=== PATIENT | female | born 1980 | race Caucasian/White ===

== ENCOUNTER → 2016-07-15 | Outpatient (CLI) | payer BC, OTHER ==
[~2016-07-15] MED LIST: FLVHFA110 PO; OXYC-57 PO; PANT40TA PO; PEDICHW50 PO
[2016-07-15 12:05] LABS: BASO % 0.2 %; BASO ABS # 0.02 K/uL (0-0.2); COMPLETE YES; EOS % 0.6 %; HEMATOCRIT 39.6 % (37-47); IG% 0.2 %; LYMPH % 21.7 %; MEAN CELL VOLUME 88.4 fL (80-100); MEAN CORPUSCULAR HEMOGLOBIN 30.4 pg (25-34); MEAN CORPUSCULAR HGB CONC 34.3 g/dl (32-36); MEAN PLATELET VOLUME 10.7 fL (7.4-10.4); MONO % 4.6 %; NEUT % 72.7 %; PLATELET COUNT 303 K/uL (130-400); RED BLOOD COUNT 4.48 M/uL (4.2-5.4); WHITE BLOOD COUNT 8.75 K/uL (4.8-10.8)
[2016-07-15 12:12] LABS: URINE APPEARANCE CLEAR (CLEAR); URINE BILIRUBIN NEG (NEG); URINE COLOR YELLOW; URINE EPITHELIAL CELL AUTO >30 /lpf (0-5); URINE NITRITE NEG (NEG); URINE SPECIFIC GRAVITY 1.023 (1.000-1.030); UROBILINOGEN NEG (NEG)
[2016-07-15 12:16] LABS: MANUAL MICROSCOPIC REQUIRED? NO; REVIEW REQ? NO
[2016-07-16 21:52] LABS: CHLAMYDIA TRACH RNA*** NOT DETECTED (NOT DETECTED); GC (NEIS GONORRHOEAE)RNA** NOT DETECTED (NOT DETECTED)
== END | disposition home or self-care (01) ==
LOC: C.LAB1850 10:27
PROVIDERS: ATTEND Obstetrics & Gynecology
DX: O09.521 Supervision of elderly multigravida, first trimester (principal); R39.9 Unspecified symptoms and signs involving the genitourinary system; Z3A.00 Weeks of gestation of pregnancy not specified

== ENCOUNTER → 2016-09-09 | Outpatient (CLI) | payer BC, OTHER ==
[~2016-09-09] MED LIST changes: +FLVHFA110 INH; +ZNTT/150 PO
[2016-09-09 12:50] LABS: GTGD 50 Grams
== END | disposition home or self-care (01) ==
LOC: C.LAB1850 10:15
PROVIDERS: ATTEND Obstetrics & Gynecology
DX: O09.522 Supervision of elderly multigravida, second trimester (principal); Z3A.00 Weeks of gestation of pregnancy not specified

== ENCOUNTER 2016-10-05 08:46 | Emergency (ER) | payer BC, OTHER ==
[~2016-10-05] VITALS: Ht 167.6 cm; Wt 116.9 kg
[~2016-10-05 08:46] MED LIST changes: -FLVHFA110 INH; -OXYC-57 PO; -PEDICHW50 PO; -ZNTT/150 PO
[2016-10-05 08:50] VITALS: TEMP 36.7; Ht 167.6 cm; Wt 116.9 kg
[2016-10-05] MEDS ORDERED: FENTANYL CITRATE INJ 50 MCG/1 ML 2 ML VIAL IV STA (09:35)
[2016-10-05] MEDS ORDERED: SODIUM CHLORIDE 0.9% 1000ML 1,000 ML IV STA ×2 (09:35→11:23)
[2016-10-05] MEDS ORDERED: ONDANSETRON INJ 2 MG/ML 2 ML VIAL IV STA (09:35)
[2016-10-05] MEDS ORDERED: FENTANYL CITRATE INJ 50 MCG/1 ML 2 ML VIAL IV PRN (09:45)
[2016-10-05] MEDS ORDERED: PEDICHW50 PO (09:48)
[2016-10-05 10:26] LABS: BASO % 0.1 %; BASO ABS # 0.01 K/uL (0-0.2); COMPLETE YES; EOS % 0.9 %; HEMATOCRIT 34.6 % (37-47); IG% 0.2 %; LYMPH ABS # 1.54 K/uL (1.2-3.4); MEAN CELL VOLUME 90.6 fL (80-100); MEAN CORPUSCULAR HEMOGLOBIN 30.1 pg (25-34); MEAN CORPUSCULAR HGB CONC 33.2 g/dl (32-36); MEAN PLATELET VOLUME 10.2 fL (7.4-10.4); NEUT % 77.8 %; PLATELET COUNT 266 K/uL (130-400); RED BLOOD COUNT 3.82 M/uL (4.2-5.4); WHITE BLOOD COUNT 9.62 K/uL (4.8-10.8)
[2016-10-05 10:46] LABS: CALCIUM 8.1 mg/dl (8.5-10.1); CREATININE 0.52 mg/dl (0.60-1.20); MAGNESIUM 2.1 mg/dl (1.8-2.4); POTASSIUM 3.8 mmol/L (3.5-5.1)
[2016-10-05 10:49] LABS: ALB/GLOB RATIO 0.6 (0.9-2)
[2016-10-05 10:51] LABS: INR 0.9 (0.9-1.1); PROTHROMBIN TIME (PATIENT) 9.4 SECONDS (9.0-12.0)
--- NOTE | 2016-10-05 11:29 | DIAGNOSTIC IMAGING REPORT ---
CT OF THE HEAD WITHOUT CONTRAST CLINICAL HISTORY: Severe headache. 21 weeks . COMPARISON STUDY: No previous studies for comparison. CT DOSE: 537.48 mGy.cm TECHNIQUE: The abdomen and pelvis were double shielded due to . Helical axial images of the head were obtained without IV contrast. Automated exposure control was utilized for the study. FINDINGS: No acute intracranial hemorrhage, midline shift or mass effect is present. Ventricular system is normal. Basilar cisterns are patent. There are no extra-axial collections. Kaplan-white differentiation is maintained. There are no findings to suggest acute dural sinus thrombosis or acute territorial infarct. A 9 mm hypodensity within the right basal ganglia suggests a prominent perivascular space. There are no calvarial abnormalities. Visualized portions of the sinuses and mastoid air cells are clear. IMPRESSION: No acute intracranial findings. Electronically signed by: Mikey Lobato M.D. 10/05/2016 11:27 AM Dictated Date/Time: 10/05/2016 11:24 AM
[2016-10-05] MEDS ORDERED: OXYC-57 PO (13:50)
--- NOTE | 2016-10-05 13:50 | EMERGENCY ROOM VISIT NOTE ---
History First contact with patient: 08:55 Chief Complaint: FLANK PAIN Stated Complaint: PALMA, DIZZY, RT SIDED PAIN, N,V-21 WKS. PREG History of Present Illness Patient is a 21 week 36-year-old white female with past medical history significant for eosinophilic esophagitis who presents emergency department for evaluation of 2 complaints. First, she reports that she has been experiencing constant, daily, throbbing frontal headaches for the last 3 weeks. She has used acetaminophen without relief. They get worse as the day progresses. She presently rates her headache and it 8/10. She has associated blurry vision and dizziness. She denies any cold or upper respiratory symptoms including sinus or nasal congestion or allergy symptoms. She has not taken any additional medications for her headache. She does not have a history of headaches or a migraine disorder. She states that her blood pressure has been "fine at her OB visits." OB sent her to ophthalmology, she states that she had a dilated eye exam and was told that she was fine. She did not require any changes in her prescription. Secondly, patient also reports a dull right sided abdominal pain for the last week. She states the dullness is constant in nature, it can be sharp with movement or turning, then settles back down. She notes that it is in the right upper quadrant underneath her ribs, and radiates slightly towards her groin. It feels better when she holds pressure on the area. It does not wrap around to her flank or her back. She has had some intermittent nausea for the last 2 weeks, and vomited 2 today. She states that she did have typical first trimester nausea and vomiting, but that resolved, then worsened again in the last 2 weeks. She denies any lower pelvic pain. She states baby has been moving normally. She denies any vaginal bleeding or leakage of fluid, no abnormal vaginal discharge. She did have her screening 20 week ultrasound 4 days ago and told that everything was fine. She does need to go back in 4 weeks for additional views of the heart that could not be completed this week. She has some typical leg swelling and some cramping in the right leg. She denies any dysuria, frequency, urgency or hematuria. Bowel movements have been normal, denies melena, hematochezia, hematemesis, constipation or diarrhea. She has not had any fevers. She denies any rashes or insect bites. Review of Systems Review of systems as per HPI. All other systems reviewed were negative. 10 systems reviewed. Past Medical/Surgical History Medical Problems: (1) Chest pain (2) Eosinophilic esophagitis (3) Pill esophagitis (4) Shortness of breath Surgical Problems: (1) Hx of arthroscopic knee surgery (2) Hx of cholecystectomy (3) Hx of esophagogastroduodenoscopy (4) Hx of tonsillectomy Electronic medical records are reviewed and summarized as above/below. See Problem List. Family History Diabetes mellitus Social History Smoking Status: Never Smoker Alcohol Use: none Drug Use: none Housing Status: lives with family Occupation Status: employed Current/Historical Medications Scheduled Pediatric Multiple Vitamin W/ (Flintstones Chewable), 1 TAB PO QAM Scheduled PRN Oxycodone/Acetaminophen 5MG/325MG (Percocet 5MG/325MG), 1-2 TABS PO Q4 PRN for Pain Allergies Coded Allergies: No Known Allergies (Verified , 10/05/16) Physical Exam Vital Signs Date Time Temp Pulse Resp B/P (MAP) Pulse Ox O2 Delivery O2 Flow Rate FiO2 10/05/16 14:23 91 18 136/70 98 10/05/16 13:42 82 18 140/65 98 Room Air 10/05/16 12:34 75 16 134/85 98 Room Air 10/05/16 11:54 76 17 141/75 98 Room Air 10/05/16 11:02 76 15 131/73 96 Room Air 10/05/16 10:22 91 10/05/16 10:10 80 17 137/78 93 Room Air 10/05/16 08:50 36.7 107 18 143/84 97 Room Air Physical Exam CONSTITUTIONAL: Patient is a tearful, obese 36-year-old white female who was awake and alert and in mild distress due to her headache. Vital signs are stable. heart tones are appreciated with the hand-held Doppler at 155 beats per minute. EYES: Pupils equal, round, reactive to light and accommodation. Slight photophobia noted. No proptosis. EOMs intact without nystagmus. Sclera are anicteric. ENT: Tympanic membranes intact, with normal landmarks. External canals are clear. Oral and nasopharynx are clear. Mucous membranes are moist, no lesions , tongue and gums appear normal. NECK: No bruits auscultated. Supple without lymphadenopathy. No thyromegaly. No meningeal signs. Full active range of motion without discomfort. CARDIOVASCULAR: Regular rate and rhythm, with normal S1 and S2, no murmur or gallop or rub is heard. No carotid bruits auscultated. No JVD. Peripheral pulses easy to palpable. RESPIRATORY: Breath sounds equal and clear to auscultation without wheezes, rales, or rhonchi heard. Full and equal chest expansion without accessory muscle use or retractions. GI: Bowel sounds are present. Abdomen is soft, slightly tender in the right mid abdomen, without guarding, rebound or rigidity. There is no localized pain in the right lower quadrant. No organomegaly. No pulsatile masses. Fundus of the uterus is palpable at the umbilicus. MUSCULOSKELETAL: Full range of motion of extremities x 4 with good strength. No cyanosis, edema, joint tenderness or swelling. No deformity. INTEGUMENTARY: No lesions or rash, normal skin turgor. NEUROLOGICAL: Alert, oriented, and cooperative. Cranial nerves, sensation and strength grossly intact. Normal gait. Patient is able to tandem walk without difficulty. Finger to nose, finger to finger and rapid alternating movements are intact. Negative Romberg and pronator drip. DTRs are equal and symmetrical bilaterally. Medical Decision & Procedures ER Provider Diagnostic Interpretation: CT OF THE HEAD WITHOUT CONTRAST CLINICAL HISTORY: Severe headache. 21 weeks . COMPARISON STUDY: No previous studies for comparison. CT DOSE: 537.48 mGy.cm TECHNIQUE: The abdomen and pelvis were double shielded due to . Helical axial images of the head were obtained without IV contrast. Automated exposure control was utilized for the study. FINDINGS: No acute intracranial hemorrhage, midline shift or mass effect is present. Ventricular system is normal. Basilar cisterns are patent. There are no extra-axial collections. Kaplan-white differentiation is maintained. There are no findings to suggest acute dural sinus thrombosis or acute territorial infarct. A 9 mm hypodensity within the right basal ganglia suggests a prominent perivascular space. There are no calvarial abnormalities. Visualized portions of the sinuses and mastoid air cells are clear. IMPRESSION: No acute intracranial findings. Laboratory Results 10/05/16 10:10 Red Blood Count 3.82, Mean Corpuscular Volume 90.6, Mean Corpuscular Hemoglobin 30.1, Mean Corpuscular Hemoglobin Concent 33.2, Mean Platelet Volume 10.2, Neutrophils (%) (Auto) 77.8, Lymphocytes (%) (Auto) 16.0, Monocytes (%) (Auto) 5.0, Eosinophils (%) (Auto) 0.9, Basophils (%) (Auto) 0.1, Neutrophils # (Auto) 7.48, Lymphocytes # (Auto) 1.54, Monocytes # (Auto) 0.48, Eosinophils # (Auto) 0.09, Basophils # (Auto) 0.01 10/05/16 10:10 Test 10/05/16 10:10 White Blood Count 9.62 K/uL (4.8-10.8) Red Blood Count 3.82 M/uL (4.2-5.4) Hemoglobin 11.5 g/dL (12.0-16.0) Hematocrit 34.6 % (37-47) Mean Corpuscular Volume 90.6 fL (80-100) Mean Corpuscular Hemoglobin 30.1 pg (25-34) Mean Corpuscular Hemoglobin Concent 33.2 g/dl (32-36) Platelet Count 266 K/uL (130-400) Mean Platelet Volume 10.2 fL (7.4-10.4) Neutrophils (%) (Auto) 77.8 % Lymphocytes (%) (Auto) 16.0 % Monocytes (%) (Auto) 5.0 % Eosinophils (%) (Auto) 0.9 % Basophils (%) (Auto) 0.1 % Neutrophils # (Auto) 7.48 K/uL (1.4-6.5) Lymphocytes # (Auto) 1.54 K/uL (1.2-3.4) Monocytes # (Auto) 0.48 K/uL (0.11-0.59) Eosinophils # (Auto) 0.09 K/uL (0-0.5) Basophils # (Auto) 0.01 K/uL (0-0.2) RDW Standard Deviation 46.0 fL (36.4-46.3) RDW Coefficient of Variation 13.9 % (11.5-14.5) Immature Granulocyte % (Auto) 0.2 % Immature Granulocyte # (Auto) 0.02 K/uL (0.00-0.02) Prothrombin Time 9.4 SECONDS (9.0-12.0) Prothromb Time International Ratio 0.9 (0.9-1.1) Activated Partial Thromboplast Time 26.6 SECONDS (21.0-31.0) Partial Thromboplastin Ratio 1.0 Anion Gap 9.0 mmol/L (3-11) Est Creatinine Clear Calc Drug Dose 198.1 ml/min Estimated GFR () 144.5 Estimated GFR (Non- 124.7 BUN/Creatinine Ratio 9.0 (10-20) Calcium Level 8.1 mg/dl (8.5-10.1) Magnesium Level 2.1 mg/dl (1.8-2.4) Total Bilirubin 0.3 mg/dl (0.2-1) Aspartate Amino Transf (AST/SGOT) 12 U/L (15-37) Alanine Aminotransferase (ALT/SGPT) 17 U/L (12-78) Alkaline Phosphatase 91 U/L (45-117) Total Protein 6.4 gm/dl (6.4-8.2) Albumin 2.5 gm/dl (3.4-5.0) Globulin 3.9 gm/dl (2.5-4.0) Albumin/Globulin Ratio 0.6 (0.9-2) Lipase 95 U/L (73-393) Medications Administered Medications (Trade) Dose Ordered Sig/Melba Route Start Time Stop Time Status Last Admin Dose Admin Sodium Chloride 1,000 ml @ 999 mls/hr Q1H1M STAT IV 10/05/16 09:35 10/05/16 10:35 DC 10/05/16 10:20 999 MLS/HR Ondansetron HCl (Zofran Inj) 4 mg NOW STAT IV 10/05/16 09:35 10/05/16 09:38 DC 10/05/16 10:20 4 MG Fentanyl Citrate (Fentanyl Inj) 100 mcg NOW STAT IV 10/05/16 09:35 10/05/16 09:38 DC 10/05/16 10:20 100 MCG Sodium Chloride 1,000 ml @ 999 mls/hr Q1H1M STAT IV 10/05/16 11:23 10/05/16 12:23 DC 10/05/16 11:23 999 MLS/HR ED Course The patient was seen and evaluated as above. Her old records are reviewed. She presents the emergency department for 2 complaints, but her primary concern has been her headache. IV lock was initiated. She was hydrated with a total of 2 L of normal saline solution. Medication options were discussed with her given her second trimester . Risks, benefits and alternatives were outlined with her. She was agreeable to proceed. She was given 4 mg of Zofran and 100 g of fentanyl IV. She is placed on a insulation nozzleman. CBC with differential, coags, CMP, lipase, magnesium and urine dip were collected. Given the presentation of her headache, I did discuss performing a head CT with the patient, and she was in agreement. Laboratory studies noted a normal white count at 9600. H&H slightly low, likely dilutional related to her at 11.5 and 34.6. Platelets and coags are normal. Electrolytes revealed sodium of 140, potassium 3.8, chloride 108, carbon dioxide 23, BUN 5 and creatinine 0.52. Liver functions are not elevated. Lipase is not indicative of acute pancreatitis. Urine dip noted trace protein, 2+ white blood cells, no other indicators for infection. Head CT was obtained, and did not demonstrate any acute intracranial abnormality. The patient was reassessed and made aware of the results of her laboratory and diagnostic imaging studies. She reported good relief of her discomfort, and was able to rest in a darkened room during the remainder of her stay while the IV fluids were completed. All laboratory and diagnostic imaging studies were reviewed with attending physician. Differential includes: Preeclampsia, acute intracranial bleed, meningitis, encephalitis, mass or mass effect, sinusitis, infection, migraine, tumor, headache, temporal arteritis, dehydration, electrolyte or metabolic imbalance, gastritis, peptic ulcer disease , bowel obstruction, pancreatitis, UTI, pyelonephritis, among others. Preeclampsia was certainly considered, however she is early in her with this. She was slightly tachycardic upon presentation, but this improved with the IV hydration and analgesia. Blood pressure readings remained stable. She certainly not critically hypertensive. She was encouraged to follow closely with her [facility] next week for further care and evaluation. She rated her headache a 2/10 at discharge. She was given a small prescription for Percocet to use as needed for severe pain. She was advised to use this sparingly. She is discharged home with her significant other driving. Medical Reconciliation: I attest that I have personally reviewed the patient's current medication list. Blood pressure screening: Patient was found to have slightly elevated blood pressure due to circumstances, and was encouraged to follow-up with her [facility] and PCP for further care and evaluation. Medical Decision See ED Course. [place] Drug Monitoring Program Search Results: patient reviewed within database Impression Primary Impression: Headache Additional Impression: Second trimester Departure Information Prescriptions Oxycodone/Acetaminophen 5MG/325MG (PERCOCET 5MG/325MG) Tab 1-2 TABS PO Q4 Y for Pain, #10 TAB For Initial Treatment Prov: Katlin Love PA 10/05/16 Referrals Agustin Quezada D.O.Int.Med. (PCP) Patient Instructions [facility] Additional Instructions DO NOT drive, drink alcohol, operate machinery, or perform dangerous activities today. You were given medications in the ER that can affect your ability to safely function or operate a vehicle. Percocet 5/325 mg: Take 1-2 pills every four hours for breakthrough pain. Avoid alcohol, operating machinery or dangerous equipment, working on ladders or roofs, DRIVING, or situations where being under the influence may be dangerous. It is recommended to use an [id number] stool softener such as Colace, 100mg twice daily while taking this medication to avoid constipation. Rest today in a quiet, peaceful, dark environment and get a full 8-10 hrs of sleep tonight. Avoid loud noises, smoke/smoking, alcohol, bright lights, stress, or physical exertion today to minimize the chance the headache may return. Continue current medications. Acetaminophen(Tylenol) may be used for fever or pain. Use 1000mg every six hours as needed. Avoid using more than 3000mg in a 24 hour period. Return to the ER for passing out, worsening headache, vision problems, neck stiffness/pain, fevers, vomiting, worsening of your condition, or as needed. Follow up with your [facility] next week for a recheck of your current condition. Problem Qualifiers
[2016-10-05 14:23] VITALS: BP 136/70; PULSE 91; O2SAT 98
[2017-03-04] MEDS ORDERED: PANT40TA PO (09:17)
[2017-03-04] MEDS ORDERED: FLVHFA110 INH (09:17)
[2017-03-19] MEDS ORDERED: ZNTT/150 PO (12:26)
== END 2016-10-05 14:05 | disposition home or self-care (01) ==
LOC: C.EDB 08:49
DX: R51 Headache (principal); Z34.82 Encounter for supervision of other normal pregnancy, second trimester; Z83.3 Family history of diabetes mellitus

== ENCOUNTER → 2016-11-25 | Outpatient (CLI) | payer BC, OTHER ==
[~2016-11-25] MED LIST changes: -FLVHFA110 PO; +OXYC-57 PO; -PANT40TA PO; +PEDICHW50 PO
[2016-11-25 10:38] LABS: HEMATOCRIT 35.8 % (37-47)
[2016-11-25 11:28] LABS: GTGD 50 Grams
== END | disposition home or self-care (01) ==
LOC: C.LAB1850 09:46
PROVIDERS: ATTEND Obstetrics & Gynecology
DX: O09.523 Supervision of elderly multigravida, third trimester (principal)

== ENCOUNTER → 2016-11-25 | Outpatient (CLI) | payer BC, OTHER ==
[2016-11-25 11:55] LABS: URINE APPEARANCE CLOUDY (CLEAR); URINE BILIRUBIN NEG (NEG); URINE COLOR YELLOW; URINE EPITHELIAL CELL AUTO >30 /lpf (0-5); URINE NITRITE NEG (NEG); URINE SPECIFIC GRAVITY 1.018 (1.000-1.030); UROBILINOGEN NEG (NEG)
[2016-11-25 11:56] LABS: MANUAL MICROSCOPIC REQUIRED? NO; REVIEW REQ? NO
== END | disposition home or self-care (01) ==
LOC: C.LABSPEC 11:28
PROVIDERS: ATTEND Obstetrics & Gynecology
DX: O09.523 Supervision of elderly multigravida, third trimester (principal)

== ENCOUNTER 2016-12-24 22:09 | Emergency (ER) | payer BC, OTHER ==
[~2016-12-24] VITALS: Ht 160 cm; Wt 124.7 kg
[2016-12-24 22:14] VITALS: TEMP 36.6; Ht 160 cm; Wt 124.7 kg
[2016-12-24] MEDS ORDERED: SODIUM CHLORIDE 0.9% 1000ML 1,000 ML IV STA (22:54)
[2016-12-24] MEDS ORDERED: ONDANSETRON INJ 2 MG/ML 2 ML VIAL IV STA (23:19)
--- NOTE | 2016-12-24 23:23 | EMERGENCY ROOM VISIT NOTE ---
History First contact with patient: 22:28 Chief Complaint: SWELLING TO EXTREMITY Stated Complaint: 32WKS,SWELLING,NAUSEA,VOMITING,SOB,PER LD EVAL ER History of Present Illness The patient is a 36 year old female who presents to the Emergency Room with complaints of abdominal discomfort, vomiting and swelling in her extremities. The patient states that she is currently 32.5 weeks . She has had lower abdominal pain which began this evening. She is feeling normal movement. The pain has been intermittent. She states that on occasion, it "takes her breath away." She rates her discomfort a 4/10. She has had diarrhea for the past 3 days. She has had nausea and has had 2 episodes of vomiting today. She states that she has a history of eosinophilic esophagitis and she has had nausea throughout her due to this. She also reports that she has had swelling in both upper and lower extremities which started tonight. She follows with Elijah Leon [facility]. She had an appointment today and does state that her blood pressure was elevated in the office. She has had an uncomplicated so far. She has had one previous . Review of Systems A complete 10 point review of systems was reviewed with the patient with pertinent positives and negatives as per history of present illness. All else were negative. Past Medical/Surgical History Medical Problems: (1) 32 weeks gestation of (2) Abdominal cramping affecting (3) Chest pain (4) Eosinophilic esophagitis (5) Nausea and vomiting during (6) Pill esophagitis (7) Shortness of breath Surgical Problems: (1) Hx of arthroscopic knee surgery (2) Hx of cholecystectomy (3) Hx of esophagogastroduodenoscopy (4) Hx of tonsillectomy Family History Diabetes mellitus Social History Smoking Status: Never Smoker Alcohol Use: none Drug Use: none Housing Status: lives with family Occupation Status: employed Current/Historical Medications Scheduled Pediatric Multiple Vitamin W/ (Flintstones Chewable), 1 TAB PO QAM Physical Exam Vital Signs Date Time Temp Pulse Resp B/P (MAP) Pulse Ox O2 Delivery O2 Flow Rate FiO2 12/25/16 00:46 82 20 133/72 98 12/24/16 23:16 80 20 152/83 98 Room Air 12/24/16 22:14 36.6 89 16 143/87 96 Room Air Physical Exam VITALS: Vitals are noted on the nurse's note and reviewed by myself. Vital signs stable. GENERAL: This is a 36-year-old female, in no acute distress, nondiaphoretic, well-developed well-nourished. SKIN: The skin was without rashes. EARS: External auditory canals clear, tympanic membranes pearly agrawal without erythema or effusion bilaterally. EYES: Pupils equal round and reactive to light and accommodation. Conjunctivae without injection, sclerae without icterus. MOUTH: Mucous membranes moist. Tonsils are not enlarged. Pharynx without erythema or exudate. NECK: Supple without nuchal rigidity. No lymphadenopathy. HEART: Regular rate and rhythm without murmurs gallops or rubs. LUNGS: Clear to auscultation bilaterally without wheezes, rales or rhonchi. ABDOMEN: Fundal height appropriate for reported gestational age. There is mild tenderness to the suprapubic region. No guarding or rebound tenderness. NEURO: Patient was alert and oriented to person place and time. Medical Decision & Procedures ER Provider Diagnostic Interpretation: US OB LIMITED: Single live intrauterine with fetus in cephalic presentation. Posterior/lateral placenta. Normal ALEX measuring 13.8 cm. heart rate 150 bpm. Cervix not well visualized. Femur length 6.03 cm corresponding to 31 weeks 3 days. Biparietal diameter measuring 8.28 cm corresponding to 33 weeks 2 days. US VENOUS BILATERAL LOWER EXTREMITIES: No evidence of DVT. Radiologist: Shekhar Bettencourt MD Laboratory Results 12/24/16 23:10 Red Blood Count 3.80, Mean Corpuscular Volume 91.3, Mean Corpuscular Hemoglobin 29.7, Mean Corpuscular Hemoglobin Concent 32.6, Mean Platelet Volume 10.7, Neutrophils (%) (Auto) 75.0, Lymphocytes (%) (Auto) 18.1, Monocytes (%) (Auto) 5.1, Eosinophils (%) (Auto) 1.1, Basophils (%) (Auto) 0.2, Neutrophils # (Auto) 9.40, Lymphocytes # (Auto) 2.27, Monocytes # (Auto) 0.64, Eosinophils # (Auto) 0.14, Basophils # (Auto) 0.02 12/24/16 23:10 Test 12/24/16 22:20 12/24/16 23:10 Urine Color YELLOW Urine Appearance CLEAR (CLEAR) Urine pH 6.0 (4.5-7.5) Urine Specific Bartlett 1.021 (1.000-1.030) Urine Protein NEG (NEG) Urine Glucose (UA) NEG (NEG) Urine Ketones NEG (NEG) Urine Occult Blood TRACE (NEG) Urine Nitrite NEG (NEG) Urine Bilirubin NEG (NEG) Urine Urobilinogen NEG (NEG) Urine Leukocyte Esterase MODERATE (NEG) Urine WBC (Auto) 10-30 /hpf (0-5) Urine RBC (Auto) 5-10 /hpf (0-4) Urine Hyaline Casts (Auto) 1-5 /lpf (0-5) Urine Epithelial Cells (Auto) >30 /lpf (0-5) Urine Bacteria (Auto) NEG (NEG) White Blood Count 12.53 K/uL (4.8-10.8) Red Blood Count 3.80 M/uL (4.2-5.4) Hemoglobin 11.3 g/dL (12.0-16.0) Hematocrit 34.7 % (37-47) Mean Corpuscular Volume 91.3 fL (80-100) Mean Corpuscular Hemoglobin 29.7 pg (25-34) Mean Corpuscular Hemoglobin Concent 32.6 g/dl (32-36) Platelet Count 276 K/uL (130-400) Mean Platelet Volume 10.7 fL (7.4-10.4) Neutrophils (%) (Auto) 75.0 % Lymphocytes (%) (Auto) 18.1 % Monocytes (%) (Auto) 5.1 % Eosinophils (%) (Auto) 1.1 % Basophils (%) (Auto) 0.2 % Neutrophils # (Auto) 9.40 K/uL (1.4-6.5) Lymphocytes # (Auto) 2.27 K/uL (1.2-3.4) Monocytes # (Auto) 0.64 K/uL (0.11-0.59) Eosinophils # (Auto) 0.14 K/uL (0-0.5) Basophils # (Auto) 0.02 K/uL (0-0.2) RDW Standard Deviation 46.3 fL (36.4-46.3) RDW Coefficient of Variation 14.1 % (11.5-14.5) Immature Granulocyte % (Auto) 0.5 % Immature Granulocyte # (Auto) 0.06 K/uL (0.00-0.02) Anion Gap 9.0 mmol/L (3-11) Est Creatinine Clear Calc Drug Dose 159.0 ml/min Estimated GFR () 134.9 Estimated GFR (Non- 116.4 BUN/Creatinine Ratio 12.5 (10-20) Calcium Level 9.1 mg/dl (8.5-10.1) Total Bilirubin 0.1 mg/dl (0.2-1) Aspartate Amino Transf (AST/SGOT) 15 U/L (15-37) Alanine Aminotransferase (ALT/SGPT) 14 U/L (12-78) Alkaline Phosphatase 116 U/L (45-117) Total Protein 6.4 gm/dl (6.4-8.2) Albumin 2.2 gm/dl (3.4-5.0) Globulin 4.2 gm/dl (2.5-4.0) Albumin/Globulin Ratio 0.5 (0.9-2) Lipase 159 U/L (73-393) Date/Time Source Procedure Growth Status 12/24/16 22:20 Urine , Clean Catch Urine Culture - Final MORE THAN THREE TYPES OF ORGANISMS ID... Complete Medications Administered Medications (Trade) Dose Ordered Sig/Melba Route Start Time Stop Time Status Last Admin Dose Admin Sodium Chloride 1,000 ml @ 999 mls/hr Q1H1M STAT IV 12/24/16 22:54 12/24/16 23:54 DC 12/24/16 23:16 999 MLS/HR Ondansetron HCl (Zofran Inj) 4 mg NOW STAT IV 12/24/16 23:19 12/24/16 23:20 DC 12/24/16 23:22 4 MG ED Course The patient was evaluated as above. Labs were drawn and IV access was obtained. Patient was medicated with 4 mg Zofran for nausea. Ultrasounds were performed and read by statrad as above. Case was discussed with Dr. Romero of [facility]. She recommended sending the patient upstairs for monitoring. Discharge instructions were reviewed with the patient. The patient verbalized understanding and was discharged directly to L&D. Medical Decision Differential diagnosis includes preeclampsia, premature labor, placental abruption, appendicitis, urinary tract infection, among others. The patient is a 36-year-old female who presents today complaining of lower abdominal pain and leg swelling. Labs revealed mild leukocytosis and anemia, both consistent with . Urinalysis was suggestive of contamination and will be sent for culture. Ultrasound of the legs revealed no DVT. ultrasound revealed a live IUP with normal heart tones. Patient was slightly hypertensive, although this may be due to anxiety, as the patient does seem very anxious regarding her symptoms. Case was discussed with [facility], who recommended sending the patient upstairs for monitoring. She was sent to labor and delivery for monitoring and will follow-up with [facility]. Medication Reconcilliation Current Medication List: was personally reviewed by me Blood Pressure Screening Patient's blood pressure: Elevated blood pressure (will f/u with [facility]) Impression Primary Impression: Abdominal cramping affecting Departure Information Dispostion Home / Self-Care Condition GOOD Referrals No Doctor, Assigned (PCP) Patient Instructions My [facility] Additional Instructions Tylenol as needed for pain. Rest and drink plenty of fluids. Follow-up with [facility] as scheduled. Return to the emergency department with any worsening or new/concerning symptoms.
[2016-12-24 23:30] LABS: BASO % 0.2 %; BASO ABS # 0.02 K/uL (0-0.2); COMPLETE YES; EOS % 1.1 %; HEMATOCRIT 34.7 % (37-47); IG% 0.5 %; LYMPH % 18.1 %; LYMPH ABS # 2.27 K/uL (1.2-3.4); MEAN CELL VOLUME 91.3 fL (80-100); MEAN CORPUSCULAR HEMOGLOBIN 29.7 pg (25-34); MEAN CORPUSCULAR HGB CONC 32.6 g/dl (32-36); MEAN PLATELET VOLUME 10.7 fL (7.4-10.4); MONO % 5.1 %; PLATELET COUNT 276 K/uL (130-400); WHITE BLOOD COUNT 12.53 K/uL (4.8-10.8)
[2016-12-24 23:52] LABS: BUN/CREATININE RATIO 12.5 (10-20); CALCIUM 9.1 mg/dl (8.5-10.1); CREATININE 0.64 mg/dl (0.60-1.20)
[2016-12-24 23:53] LABS: URINE APPEARANCE CLEAR (CLEAR); URINE BILIRUBIN NEG (NEG); URINE COLOR YELLOW; URINE EPITHELIAL CELL AUTO >30 /lpf (0-5); URINE NITRITE NEG (NEG); URINE SPECIFIC GRAVITY 1.021 (1.000-1.030); UROBILINOGEN NEG (NEG); ZZUR CULT IF INDIC CLEAN CATCH YES
[2016-12-24 23:55] LABS: ALB/GLOB RATIO 0.5 (0.9-2)
[2016-12-24 23:58] LABS: MANUAL MICROSCOPIC REQUIRED? NO; REVIEW REQ? NO
[2016-12-25 00:46] VITALS: BP 133/72; PULSE 82; O2SAT 98
--- NOTE | 2016-12-25 06:44 | DIAGNOSTIC IMAGING REPORT ---
BILATERAL LOWER EXTREMITY VENOUS DOPPLER CLINICAL HISTORY: Bilateral leg swelling. COMPARISON STUDY: No previous studies for comparison. TECHNIQUE: Sonography of the deep venous system of the bilateral lower extremities was performed. Compression and augmentation were evaluated. FINDINGS: The bilateral common femoral, superficial femoral and popliteal veins were compressible. Augmentation was normal. Flow was shown within the deep calf vessels. IMPRESSION: No evidence of deep venous thrombus within the bilateral lower extremities. Electronically signed by: Mikey Lobato M.D. 12/25/2016 6:43 AM Dictated Date/Time: 12/25/2016 6:42 AM
--- NOTE | 2016-12-25 06:58 | DIAGNOSTIC IMAGING REPORT ---
LIMITED (US) HISTORY: 36 years-old Female presents with lower acute abdominal pain with gestation, 32 wks COMPARISON: None available TECHNIQUE: Multiple real-time sonographic images of the deep pelvic structures were obtained transabdominally assessing grayscale appearance, color Doppler and M-mode analysis. FINDINGS: A fetus is noted in cephalic position. heart rate is measured at 150 bpm. Cervix is obscured by the head. Placenta is noted with a posterior lateral position and appears to be within normal limits. ALEX is measured at 13.84, within normal limits (normal is approximately 8-18 cm). Femur length is 6.03 cm correlating with estimated gestational age of 31 weeks and 3 days. Biparietal diameter is measured at 8.28 cm, correlating with estimated gestational age of 33 weeks and 2 days. Gestational age is calculated at 32 weeks and 1 day. IMPRESSION: 1. Single living intrauterine gestation with measurements as above. 2. Normal sonographic appearance of the placenta. 3. Normal ALEX. 4. Cervix not well seen. The above report was generated using voice recognition software. It may contain grammatical, syntax or spelling errors. Electronically signed by: Brian Bennett M.D. 12/25/2016 6:56 AM Dictated Date/Time: 12/25/2016 6:52 AM
== END 2016-12-25 01:04 | disposition home or self-care (01) ==
LOC: C.EDB 22:11 → C.EDC 12-25 01:04
DX: R10.30 Lower abdominal pain, unspecified (principal); O99.89 Other specified diseases and conditions complicating pregnancy, childbirth and the puerperium; Z3A.32 32 weeks gestation of pregnancy; O21.9 Vomiting of pregnancy, unspecified; K20.0 Eosinophilic esophagitis; Z83.3 Family history of diabetes mellitus

== ENCOUNTER 2016-12-25 01:42 | Outpatient (CLI) | payer BC, OTHER ==
[~2016-12-25] VITALS: Ht 167.6 cm; Wt 123.4 kg
[2016-12-25 04:20] VITALS: Ht 167.6 cm; Wt 123.4 kg
== END 2016-12-25 03:40 | disposition home or self-care (01) ==
LOC: C.LD 01:42 → C.OPB 01:42
PROVIDERS: ATTEND Obstetrics & Gynecology
DX: O26.893 Other specified pregnancy related conditions, third trimester (principal); R10.9 Unspecified abdominal pain; O21.0 Mild hyperemesis gravidarum; Z3A.32 32 weeks gestation of pregnancy

== ENCOUNTER 2016-12-27 08:56 | Observation (INO) | payer BC, OTHER ==
[~2016-12-27] VITALS: Ht 167.6 cm; Wt 118.6 kg
[~2016-12-27 08:56] MED LIST changes: -OXYC-57 PO
[2016-12-27] MEDS ORDERED: LACTATED RINGER'S 1000ML 500 ML IV ONE (09:07)
--- NOTE | 2016-12-27 09:49 | DIAGNOSTIC IMAGING REPORT ---
LIMITED (US) CLINICAL HISTORY: 32 weeks bleeding COMPARISON STUDY: 12/24/2016 FINDINGS: There is a single live fetus in cephalic presentation. The placenta is posterior lateral. The amniotic fluid index is 15.6 cm. The maternal cervix appears closed measuring 4 cm. No placental abnormalities are visualized. A single femur measurement was obtained. The femur measured 6 2 mm corresponding to an estimated postmenstrual age of 32 weeks and 4 days. IMPRESSION: 1. Single live fetus in cephalic presentation 2. Amniotic fluid index of 15.6 cm 3. No placental abnormalities identified. Electronically signed by: Doc West M.D. 12/27/2016 9:48 AM Dictated Date/Time: 12/27/2016 9:45 AM
[2016-12-27 10:22] VITALS: Ht 167.6 cm; Wt 118.6 kg
[2016-12-27 10:22] LABS: BASO % 0.2 %; BASO ABS # 0.02 K/uL (0-0.2); COMPLETE YES; EOS % 0.8 %; HEMATOCRIT 35.7 % (37-47); IG% 0.5 %; LYMPH % 14.1 %; MEAN CELL VOLUME 89.9 fL (80-100); MEAN CORPUSCULAR HEMOGLOBIN 30.2 pg (25-34); MEAN CORPUSCULAR HGB CONC 33.6 g/dl (32-36); MEAN PLATELET VOLUME 10.7 fL (7.4-10.4); MONO % 4.6 %; NEUT % 79.8 %; PLATELET COUNT 285 K/uL (130-400); RED BLOOD COUNT 3.97 M/uL (4.2-5.4); WHITE BLOOD COUNT 10.65 K/uL (4.8-10.8)
[2016-12-27] MEDS ORDERED: IV FLUIDS COMPLETED PRN (10:30)
[2016-12-27 10:35] LABS: INR 0.8 (0.9-1.1)
[2016-12-27 10:46] LABS: ALT/SGPT 16 U/L (12-78); BLOOD UREA NITROGEN 7 mg/dl (7-18); BUN/CREATININE RATIO 10.1 (10-20); CALCIUM 9.4 mg/dl (8.5-10.1); CARBON DIOXIDE 25 mmol/L (21-32); CHLORIDE 105 mmol/L (98-107); CREATININE 0.68 mg/dl (0.60-1.20); GLUCOSE 88 mg/dl (70-99); POTASSIUM 4.3 mmol/L (3.5-5.1); SODIUM 137 mmol/L (136-145)
[2016-12-27 10:49] LABS: ALB/GLOB RATIO 0.6 (0.9-2); ALKALINE PHOSPHATASE 119 U/L (45-117); AST/SGOT 17 U/L (15-37)
[2016-12-27] MEDS: LACTATED RINGER'S 1000ML 1,000 ML IV SCH ×2 (15:17→16:48)
[2016-12-27] MEDS ORDERED: LACTATED RINGER'S 1000ML 1,000 ML IV SCH (15:30)
--- NOTE | 2017-01-02 08:26 | DISCHARGE SUMMARY ---
Adelaida was observed on 12/27/2016 for vaginal bleeding. The bleeding was initially heavy, but when she presented to labor and delivery had essentially stopped. She was approximately 33 weeks. She was observed for a period of time of approximately 8:00. IV was started and ultrasound was performed which was normal. She did have some initial contractions which responded to IV hydration. She was checked; her external cervix was 1-2 cm but internal os was closed. By the end of her observation period during the same day her contractions had decreased. Her cervix was unchanged and her bleeding stopped. She was sent home with instructions to call if there was any further bleeding or problems. PHYSICAL EXAMINATION: VITAL SIGNS: Stable. She was afebrile. CHEST: Clear. CARDIOVASCULAR: Normal rate and rhythm. No audible murmur. heart rate tones reactive. CERVIX: External os 1-2 cm.
== END 2016-12-27 20:15 | disposition home or self-care (01) ==
LOC: C.OPB 08:56 → C.LD 08:57 → C.OPB 09:42
PROVIDERS: ADMIT Obstetrics & Gynecology; ATTEND Obstetrics & Gynecology
DX: O46.93 Antepartum hemorrhage, unspecified, third trimester (principal); O62.9 Abnormality of forces of labor, unspecified; Z3A.33 33 weeks gestation of pregnancy

== ENCOUNTER 2016-12-28 09:04 | Outpatient (CLI) | payer BC, OTHER ==
[~2016-12-28] VITALS: Ht 167.6 cm; Wt 118.6 kg
[2016-12-28 09:18] VITALS: Ht 167.6 cm; Wt 118.6 kg
[2016-12-28 10:21] LABS: BASO % 0.2 %; BASO ABS # 0.02 K/uL (0-0.2); EOS % 0.8 %; IG% 0.5 %; LYMPH ABS # 1.62 K/uL (1.2-3.4); MEAN CELL VOLUME 90.7 fL (80-100); MEAN CORPUSCULAR HEMOGLOBIN 30.3 pg (25-34); MEAN PLATELET VOLUME 10.7 fL (7.4-10.4); MONO % 4.4 %; NEUT % 77.1 %; PLATELET COUNT 263 K/uL (130-400); RED BLOOD COUNT 3.86 M/uL (4.2-5.4); WHITE BLOOD COUNT 9.54 K/uL (4.8-10.8)
[2016-12-28 10:23] LABS: COMPLETE YES; MEAN CORPUSCULAR HGB CONC 33.4 g/dl (32-36)
[2016-12-28 10:28] LABS: INR 0.9 (0.9-1.1); PROTHROMBIN TIME (PATIENT) 9.1 SECONDS (9.0-12.0)
[2016-12-28 10:35] LABS: URINE APPEARANCE CLEAR (CLEAR); URINE BILIRUBIN NEG (NEG); URINE COLOR YELLOW; URINE EPITHELIAL CELL AUTO >30 /lpf (0-5); URINE NITRITE NEG (NEG); URINE PH 7.5 (4.5-7.5); URINE SPECIFIC GRAVITY 1.017 (1.000-1.030); UROBILINOGEN NEG (NEG)
[2016-12-28 10:40] LABS: MANUAL MICROSCOPIC REQUIRED? NO; REVIEW REQ? NO
[2016-12-28 10:41] LABS: ALKALINE PHOSPHATASE 118 U/L (45-117); ALT/SGPT 15 U/L (12-78); AST/SGOT 17 U/L (15-37); CREATININE 0.63 mg/dl (0.60-1.20)
[2016-12-28 10:55] LABS: URINE PROTIEN/CREAT RATIO 0.1 (0-0.2); URINE TOTAL PROTEIN 12.2 mg/dl (0-11.9)
[2016-12-28 11:33] LABS: URIC ACID 4.6 mg/dl (2.6-7.2)
[2016-12-28] MEDS ORDERED: BETAMETH SOD PHOS/ACETATE IA 6 MG/ML IM SCH (13:45)
--- NOTE | 2016-12-28 15:59 | HISTORY & PHYSICAL EXAMINATION ---
DATE OF ADMISSION: 12/28/2016 ADMISSION/TRANSFER NOTE DIAGNOSES: 1. Complicated at 32 weeks gestational age. 2. Probable placental abruption. 3. Probable gestational hypertension. ADMISSION HISTORY: The patient is a 36-year-old 2, para 1 with an EDC of 17 February by dates and first trimester ultrasound who presented to labor and delivery for evaluation of third trimester bleeding. The patient had been observed on labor and delivery on 27 December for approximately 14 hours for third trimester bleeding. She reported passing blood clots at home. She was evaluated on labor and delivery on 27 December and observed with no cervical change. She had an ultrasound which showed no evidence of placental abruption and cervix was long, thick on ultrasound. induced hypertensive labs were done on 27 December and those were within normal limits. The patient was sent home and immediately started having passages of blood clots again, she returned to labor and delivery for repeat evaluation. Prior to these episodes, the patient's had been unremarkable. The patient's first was delivery in [place] with some third trimester elevated blood pressures, but she did not receive a diagnosis of preeclampsia. During this , she had talked about some irregular heartbeat, but she was evaluated by cardiology and no further evaluation was felt to be necessary. PAST MEDICAL HISTORY: OBSTETRICAL: As above. ROD FINISHER: Conceived on femora. MEDICAL: Thyroid nodule, eosinophilic esophagitis. SURGICAL: Thyroid nodule biopsy, tonsillectomy, cholecystectomy, left knee arthroscopy. SOCIAL HISTORY: No smoking. FAMILY HISTORY: Noncontributory. REVIEW OF SYSTEMS: As per HPI. PHYSICAL EXAMINATION: GENERAL: Shows a gravid female in no acute distress. VITAL SIGNS: Blood pressure of 140/90 and a weight 271 pounds. HEENT EXAMINATION: Unremarkable. NECK: Supple. LUNGS: Clear. HEART: With a regular rhythm and rate. ABDOMEN: Gravid, positive heart tones. No palpable contractions. PELVIC: Shows normal external genitalia. The vaginal vault is pink and rugated. There is blood in the posterior fornix. There is some dark active bleeding noted from the cervical os. Bimanual examination shows the external os to be 1-2 cm dilated. EXTREMITIES: Shows +1 edema. NEUROLOGIC: DTRs are 2+. ADMISSION LABORATORY VALUES: Show an H&H of 11.7 and 35.0. Coagulation profile: PT is 9.1 and INR 0.9. Liver function tests are within normal limits. Creatinine 0.63. Vsinaxd-mz-uftbtyicsb urine ratio is 0.1. HOSPITAL COURSE: The patient had been observed 24 hours previously for third trimester bleeding and been discharged home and returned immediately 6 hours later with continued vaginal bleeding. On heart rate tracing is a category 1 tracing. Blood pressures are elevated but preeclamptic labs are within normal limits. At this point, likely diagnosis is a small placental abruption with gestational hypertension. Whether or not this will progress into a large abruption needing delivery is unknown. Observation needs to occur at a level 3 nursery where the patient can be observed and delivered if necessary. I have discussed the case with the obstetrical service in [place] who have agreed to accept the patient in transfer. I believe the patient can go by ambulance ALS. I have discussed this with the patient including the risks, benefits and alternatives to the transfer, while the benefits will be the observation a level 3 nursery, the risks are involvement in a motor vehicle accident with transfer. We have also discussed about the risks staying at [facility] with delivery of a premature that cannot be taken care of; patient consents to the transfer.
--- NOTE | 2017-01-01 12:27 | DISCHARGE SUMMARY ---
Adelaida was assessed for vaginal bleeding. She is approximately 32 weeks . Bleeding was initially heavy when she presented to the hospital. The bleeding stopped largely. She was assessed with ultrasound, monitoring, and labs and there was no obvious evidence of placenta abruption. Later that evening her bleeding had stopped completely. There were minimal contractions but only mild and fetus was active and reactive. At this time she was discharged home after observation. PHYSICAL EXAMINATION: VITAL SIGNS: Stable. She was afebrile. CHEST: Clear. CARDIOVASCULAR: Normal rate and rhythm. No audible murmur. ABDOMEN: Gravid. CERVIX: External os 1-2 cm, internal os closed. IMPRESSION AND PLAN: Discharge home after some observation after bleeding had stopped.
== END 2016-12-28 15:30 | disposition short-term general hospital (02) ==
LOC: C.OPB 09:04 → C.LD 09:05 → C.OPB 15:30 → EDSTATUS 02-17 09:00
PROVIDERS: ATTEND Obstetrics & Gynecology
DX: O46.93 Antepartum hemorrhage, unspecified, third trimester (principal); Z3A.32 32 weeks gestation of pregnancy; O99.283 Endocrine, nutritional and metabolic diseases complicating pregnancy, third trimester; E04.1 Nontoxic single thyroid nodule; O99.613 Diseases of the digestive system complicating pregnancy, third trimester; K20.0 Eosinophilic esophagitis; Z90.49 Acquired absence of other specified parts of digestive tract

== ENCOUNTER → 2017-01-08 | Outpatient (CLI) | payer BC, OTHER ==
[2017-01-08 12:57] LABS: HEMATOCRIT 35.7 % (37-47); MEAN CELL VOLUME 90.4 fL (80-100); MEAN CORPUSCULAR HEMOGLOBIN 30.4 pg (25-34); MEAN CORPUSCULAR HGB CONC 33.6 g/dl (32-36); MEAN PLATELET VOLUME 11.2 fL (7.4-10.4); PLATELET COUNT 287 K/uL (130-400); RED BLOOD COUNT 3.95 M/uL (4.2-5.4); WHITE BLOOD COUNT 11.85 K/uL (4.8-10.8)
[2017-01-08 13:40] LABS: ALKALINE PHOSPHATASE 127 U/L (45-117); ALT/SGPT 18 U/L (12-78); AST/SGOT 15 U/L (15-37); URIC ACID 4.4 mg/dl (2.6-7.2)
== END | disposition home or self-care (01) ==
LOC: C.LAB1850 11:42
PROVIDERS: ATTEND Obstetrics & Gynecology
DX: O13.3 Gestational [pregnancy-induced] hypertension without significant proteinuria, third trimester (principal)

== ENCOUNTER → 2017-01-14 | Outpatient (CLI) | payer BC, OTHER ==
[2017-01-14 14:48] LABS: HEMATOCRIT 35.5 % (37-47); MEAN CELL VOLUME 90.1 fL (80-100); MEAN CORPUSCULAR HEMOGLOBIN 30.5 pg (25-34); MEAN CORPUSCULAR HGB CONC 33.8 g/dl (32-36); MEAN PLATELET VOLUME 10.9 fL (7.4-10.4); PLATELET COUNT 281 K/uL (130-400); RED BLOOD COUNT 3.94 M/uL (4.2-5.4); WHITE BLOOD COUNT 11.62 K/uL (4.8-10.8)
[2017-01-14 15:18] LABS: ALT/SGPT 16 U/L (12-78); AST/SGOT 16 U/L (15-37); CREATININE 0.69 mg/dl (0.60-1.20)
[2017-01-14 15:20] LABS: ALKALINE PHOSPHATASE 143 U/L (45-117)
== END | disposition home or self-care (01) ==
LOC: C.LAB1850 12:39
PROVIDERS: ATTEND Obstetrics & Gynecology
DX: O13.3 Gestational [pregnancy-induced] hypertension without significant proteinuria, third trimester (principal); Z3A.00 Weeks of gestation of pregnancy not specified

== ENCOUNTER 2017-01-16 15:05 | Outpatient (CLI) | payer BC, OTHER ==
[2017-01-16 15:57] LABS: BASO % 0.1 %; BASO ABS # 0.01 K/uL (0-0.2); EOS % 0.5 %; HEMATOCRIT 34.6 % (37-47); IG% 0.4 %; LYMPH % 16.5 %; MEAN CELL VOLUME 91.1 fL (80-100); MEAN CORPUSCULAR HEMOGLOBIN 29.7 pg (25-34); MEAN PLATELET VOLUME 10.5 fL (7.4-10.4); MONO % 5.5 %; PLATELET COUNT 257 K/uL (130-400); WHITE BLOOD COUNT 10.93 K/uL (4.8-10.8)
[2017-01-16 16:03] LABS: COMPLETE YES; MEAN CORPUSCULAR HGB CONC 32.7 g/dl (32-36)
[2017-01-16] MEDS ORDERED: ACETAMINOPHEN 325 MG TAB PO STA (16:18)
[2017-01-16 16:26] LABS: ALT/SGPT 16 U/L (12-78); AST/SGOT 13 U/L (15-37); CREATININE 0.69 mg/dl (0.60-1.20)
[2017-01-16 16:46] LABS: URINE PROTIEN/CREAT RATIO 0.1 (0-0.2); URINE TOTAL PROTEIN 15.7 mg/dl (0-11.9)
== END 2017-01-16 17:22 | disposition home or self-care (01) ==
LOC: C.LD 15:05 → C.OPB 15:05
PROVIDERS: ATTEND Obstetrics & Gynecology
DX: O16.3 Unspecified maternal hypertension, third trimester (principal); Z3A.35 35 weeks gestation of pregnancy

== ENCOUNTER 2017-01-19 22:01 | Inpatient (IN) | payer BC, OTHER ==
[~2017-01-19] VITALS: Ht 167.6 cm; Wt 123.5 kg
[2017-01-19] MEDS ORDERED: LACTATED RINGER'S 1000ML 1,000 ML IV PRN (22:29)
[2017-01-19] MEDS ORDERED: LACTATED RINGER'S 1000ML 1,000 ML IV SCH (22:29)
[2017-01-19] MEDS ORDERED: PENICILLIN G POTASSIUM IV 3 MU in DEXTROSE 5% 100ML 100 ML IV PRN (22:30)
[2017-01-19] MEDS ORDERED: LABETALOL HCL IV 5 MG/ML 20ML IV STA (22:32)
[2017-01-19] MEDS ORDERED: MAGNESIUM SULFATE / WTR 1,000 ML IV SCH (22:32)
[2017-01-19] MEDS ORDERED: PENICILLIN G POTASSIUM IV 6 MU in DEXTROSE 5% 250ML 250 ML IV STA (22:34)
[2017-01-19] MEDS ORDERED: LACTATED RINGER'S 1000ML 500 ML IV PRN (22:40)
[2017-01-19] MEDS ORDERED: OXYTOCIN 30 UNITS/500ML NSS IV PRN (22:45)
[2017-01-19 22:55] LABS: HEMATOCRIT 36.1 % (37-47); MEAN CELL VOLUME 90.3 fL (80-100); MEAN CORPUSCULAR HEMOGLOBIN 28.5 pg (25-34); MEAN CORPUSCULAR HGB CONC 31.6 g/dl (32-36); MEAN PLATELET VOLUME 10.6 fL (7.4-10.4); PLATELET COUNT 241 K/uL (130-400); WHITE BLOOD COUNT 12.02 K/uL (4.8-10.8)
[2017-01-19 23:04] LABS: INR 0.8 (0.9-1.1); PROTHROMBIN TIME (PATIENT) 8.9 SECONDS (9.0-12.0)
[2017-01-19 23:22] LABS: ALT/SGPT 16 U/L (12-78); AST/SGOT 20 U/L (15-37); CREATININE 0.77 mg/dl (0.60-1.20)
[2017-01-19] MEDS ORDERED: EpHEDrine SULFATE INJ 50 MG/ML AMP ONE (23:24)
[2017-01-19] MEDS ORDERED: BUPIVACAINE 0.25% 30 ML VIAL ONE (23:24)
[2017-01-19] MEDS ORDERED: FENTANYL 2MCG/ML ROPIV 1.25MG/ML 100ML BAG EPI ONE (23:24)
[2017-01-19] MEDS ORDERED: FENTANYL CITRATE INJ 50 MCG/1 ML 2 ML VIAL ONE (23:25)
[2017-01-20] MEDS ORDERED: LACTATED RINGER'S 1000ML 500 ML IV PRN (00:11)
[2017-01-20] MEDS ORDERED: NALOXONE HCL INJ 1 MG in SODIUM CHLORIDE 0.9% 1000ML 1,000 ML IV PRN (00:11)
[2017-01-20] MEDS ORDERED: NALBUPHINE HCL INJ 10 MG/ML AMP IV PRN (00:15)
[2017-01-20] MEDS ORDERED: EpHEDrine SULFATE INJ 50 MG/ML AMP IV PRN (00:15)
[2017-01-20] MEDS ORDERED: NALOXONE HCL INJ 0.4 MG/1 ML VIAL/CARP IV PRN (00:15)
[2017-01-20] MEDS ORDERED: DiphenhydrAMINE HCL 50 MG/ML VIAL IV PRN (00:15)
[2017-01-20] MEDS ORDERED: ONDANSETRON INJ 2 MG/ML 2 ML VIAL IV PRN (00:15)
[2017-01-20] MEDS ORDERED: FENTANYL 2MCG/ML ROPIV 1.25MG/ML 100ML BAG EPI PRN (00:15)
[2017-01-20 01:53] VITALS: Ht 167.6 cm; Wt 123.5 kg
[2017-01-20] MEDS ORDERED: OXYCODONE/ACETAMINOPHEN 5-325 TAB PO PRN (04:15)
[2017-01-20] MEDS ORDERED: HYDROCORTISONE ACETATE 25 MG SUPP PR PRN (04:15)
[2017-01-20] MEDS ORDERED: ACETAMINOPHEN/CODEINE 300/30MG TAB PO PRN ×2 (04:15)
[2017-01-20] MEDS ORDERED: OXYTOCIN 30 UNITS/500ML NSS IV PRN (04:15)
[2017-01-20] MEDS ORDERED: SUPERCREAM 0.870 % 15GM JAR EXT PRN (04:15)
[2017-01-20] MEDS ORDERED: BENZOCAINE 20% AER SPR 82.5 GM CAN EXT PRN (04:15)
[2017-01-20] MEDS ORDERED: DIPHTHERIA/TETANUS/PERTUSSIS 0.5 ML SYR/VIAL IM. ONE (04:15)
[2017-01-20] MEDS ORDERED: LANOLIN OINT EXT PRN ×2 (04:15)
--- NOTE | 2017-01-20 06:12 | DELIVERY SUMMARY ---
DATE OF OPERATION: 01/19/2017 PREOPERATIVE DIAGNOSES: 1. Intrauterine at 35 and 6/7 week. 2. Premature rupture of membranes with premature onset of labor. 3. Gestational hypertension. 4. Morbid obesity. POSTOPERATIVE DIAGNOSES: Same. PROCEDURES: 1. Labetalol IV for severe hypertension. 2. Magnesium sulfate seizure prophylaxis. 3. Penicillin for GBS positive status. 4. Normal spontaneous vaginal delivery. 5. Bilateral labial and a small vaginal laceration with repair. SURGEON: Latoya Guillaume MD ANESTHESIA: Epidural. ESTIMATED BLOOD LOSS: 350 mL. DESCRIPTION OF PROCEDURE: The patient presented to labor and delivery, was found to be in active labor and ruptured with some yellow tinged fluid at 35 and 6/7 weeks. The patient is a known gestational hypertensive and was on for induction for the following week; however, she presented with blood pressure of 180/100, I suspect some of this is from her gestational hypertension and other of it was from pain from contractions that she was experiencing. Nonetheless, she received IV labetalol and magnesium sulfate prophylaxis for severe gestational hypertension. After her epidural and administration of labetalol and administration of magnesium sulfate, her pressures were normal. She progressed spontaneously after her epidural to complete-complete and +2. She pushed over 1 contraction to delivery a viable male in ROBERTO presentation. There was no nuchal cord. The nose and mouth were bulb suctioned and the rest of the infant was then delivered without difficulty. The nose and mouth were again bulb suctioned. The cord was clamped and cut. The was taken over to the warmer for drying and attention, pediatrics in attendance. Cord blood and gases were obtained. Placenta was delivered spontaneously intact with a 3-vessel cord. Cervix, sulci and rectum were examined and found to be intact as well as perineum. Bilateral labial and a small vaginal tear were repaired with several [id number]-[id number] sutures of 4-0 Vicryl. Hemostasis obtained with dilute Pitocin and fundal massage. Apgars 9 and 9. Weight pending. Mother and baby doing well at the end of the delivery. I attest to the content of the Intraoperative Record and any orders documented therein. Any exceptions are noted below. [facility]
[2017-01-20] MEDS: ACETAMINOPHEN 325 MG TAB PO PRN ×2 (07:38→13:26)
--- NOTE | 2017-01-20 09:47 | Anesthesia Procedure Note ---
Anesthesia Epidural Removal Nt Date & Time Jan 20, 2017 at 09:46 Vital Signs Pain Intensity: 7.0 Notes Mental Status: alert / awake / arousable, participated in evaluation Nausea / Vomiting: adequately controlled Pain: adequately controlled Airway Patency, RR, SpO2: stable & adequate BP & HR: stable & adequate Hydration State: stable & adequate Neuraxial Anesthesia: was administered Anesthetic Complications: no major complications apparent, pt satisfied with anesthetic care Epidural: removed without complications, with tip intact
[2017-01-20] MEDS: PRENATAL VITAMIN TAB PO SCH (16:12)
[2017-01-20] MEDS: DOCUSATE SODIUM 100 MG CAP PO SCH (16:12)
[2017-01-20 17:00] VITALS: BP 139/78; PULSE 85; TEMP 36.5
[2017-01-20 19:45] VITALS: BP 134/88; PULSE 96; TEMP 36.8
[2017-01-20 23:20] VITALS: BP 128/85; PULSE 81; TEMP 36.6; O2SAT 97
[2017-01-20] MEDS: IBUPROFEN 600 MG TAB PO PRN (23:31)
--- NOTE | 2017-01-21 05:54 | OB/GYN Progress Note ---
TRACK AND FIELD COACH Progress Note Date of Service Jan 21, 2017. Subjective conversation w/ patient, physical exam, chart review, lab review Ambulation: ambulating normally Voiding: no voiding problems Passing Gas: Yes Diet Tolerance: Regular Diet Feeding Type: Bottle Feeding Pain: Minimal cramping Review of Systems Constitutional: No fever, No chills Respiratory: No cough, No shortness of breath Cardiac: + edema, No chest pain Abdomen: No nausea, No vomiting, No diarrhea Female : No dysuria Objective Vital Signs Date Time Temp Pulse Resp B/P (MAP) Pulse Ox O2 Delivery O2 Flow Rate FiO2 01/20/17 23:20 36.6 81 16 128/85 (99) 97 Room Air 01/20/17 23:20 Room Air 01/20/17 19:45 36.8 96 20 134/88 (103) Room Air 01/20/17 17:00 36.5 85 20 139/78 (98) Room Air 01/20/17 17:00 Room Air Physical Exam General Appearance: WD/WN, NO APPARENT DISTRESS Respiratory/Chest: lungs clear, normal breath sounds, no respiratory distress Cardiovascular: regular rate, rhythm, no murmur Abdomen: normal bowel sounds, non tender, soft Fundus: Firm, Non-Tender, Relation to Umbilicus (approx one down) Extremities: non-tender, no calf tenderness, + pedal edema (1+ bilaterally) Laboratory Results Last 24 Hours Test 01/21/17 04:44 Assessment and Plan Post- Day Number: 1 Continue Routine Care: 36F s/p VD, now PPD #1. - Blood type A positive. GBS positive, s/p abx x2. Rubella immune. - Vital signs reviewed and stable. - Pain controlled with tylenol and motrin. - No leg swelling or tenderness on calf palpation. Encourage ambulation. - Pt is bottle feeding. - Hemoglobin pre-delivery 11.4, post-delivery 10.4. Bleeding has improved. Continue to monitor clinically. - Continue routine post-vaginal delivery care. - Pt agreed with above plan, all current questions answered. Brian Geiger MD, PGY1 Program Production Specialist Physician Supervision Note: I interviewed and examined the patient. Discussed with Dr. Geiger and agree with findings and plan as documented in the note. Any exceptions or clarifications are listed here: [None] Documented By: Josefina Maldonado Resident Tracking Resident Involvement: Resident Care Provided Care Provided: OB Delivery (OB rounds)
[2017-01-21 06:49] LABS: HEMATOCRIT 32.6 % (37-47)
[2017-01-21] MEDS: DOCUSATE SODIUM 100 MG CAP PO SCH ×3 (07:39→20:03)
[2017-01-21] MEDS: IBUPROFEN 600 MG TAB PO PRN ×2 (07:40→15:43)
[2017-01-21 07:45] VITALS: BP 123/83; PULSE 72; TEMP 36.5; O2SAT 98
[2017-01-21] MEDS: FLINTSTONES COMPLETE CHEWABLE TAB PO SCH (09:17)
[2017-01-21 13:00] VITALS: BP 132/83
[2017-01-21 15:30] VITALS: BP 142/86; PULSE 83; TEMP 36.7; O2SAT 98
[2017-01-21 19:30] VITALS: BP 143/79; PULSE 79; TEMP 36.8; O2SAT 99
[2017-01-21 23:50] VITALS: BP 104/68; PULSE 76; TEMP 36.7; O2SAT 98
[2017-01-22] MEDS: IBUPROFEN 600 MG TAB PO PRN ×2 (00:52→08:58)
[2017-01-22 07:40] VITALS: BP 138/84; PULSE 74; TEMP 36.7; O2SAT 97
--- NOTE | 2017-01-22 07:42 | Progress Note ---
Subjective Jan 22, 2017. Subjective conversation w/ patient, physical exam, chart review Ambulation: ambulating normally Voiding: no voiding problems Diet Tolerance: Regular Diet Lochia: Moderate Objective Vital Signs Date Time Temp Pulse Resp B/P (MAP) Pulse Ox O2 Delivery O2 Flow Rate FiO2 01/21/17 23:50 98 Room Air 01/21/17 23:50 36.7 76 16 104/68 (80) 98 Room Air 01/21/17 19:30 36.8 79 20 143/79 (100) 99 Room Air 01/21/17 15:30 36.7 83 18 142/86 (104) 98 Room Air 01/21/17 15:30 98 Room Air 01/21/17 13:00 132/83 (99) 01/21/17 07:45 36.5 72 16 123/83 (96) 98 Room Air 01/21/17 07:45 98 Room Air Physical Exam General Appearance: WELL-APPEARING Respiratory/Chest: lungs clear Abdomen: non tender Fundus: Firm Extremities: no calf tenderness Assessment and Plan Problem List Medical Problems: (1) Eosinophilic esophagitis Status: Chronic (2) Headache Status: Acute (3) Second trimester Status: Acute Post- Day#: 2 Continue Routine Care: home
--- NOTE | 2017-01-22 07:43 | Discharge Instructions ---
Discharge Instructions Date of Service Jan 22, 2017. Admission Reason for Admission: Gestational (-Induced) Hypertension Discharge Discharge Diagnosis / Problem: Discharge Goals Goal(s): Routine recovery after delivery Activity Recommendations Activity Limitations: per Instructions/Follow-up section . Instructions / Follow-Up Instructions / Follow-Up ACTIVITY RECOMMENDATIONS: * Gradual return to full activity over the next 2-3 weeks. * No lifting - nothing heavier than baby over the next 2-3 weeks. * Do not engage in vigorous exercise, sexual activity or sports until cleared by your physician. * Do not drive or operate any motorized equipment until cleared by your physician. * You may shower/bathe daily. MEDICATIONS: For discomfort or pain, you may use Acetaminophen (Tylenol), Ibuprofen (Advil), or Naproxen (Aleve) following the package directions. For constipation you may use Colace following the package directions. BREAST CARE: If you are not breast feeding: * Wear a supportive bra 24 hours a day for one to two weeks. * Avoid stimulating your breasts and nipples as much as possible during the first few weeks after delivery. * When taking a shower, have the warm water hit your back, not breasts. * When your breasts feel full, apply ice packs. Usually three to four times a day helps ease the discomfort. * Take a mild pain medication (Tylenol / Motrin) when you are uncomfortable. If breast feeding: * Use breast milk to lubricate nipples. Lansinoh cream may be used for sore nipples. You do not need to remove cream prior to breast feeding. If using a different brand of cream, check the label for directions regarding removal of cream prior to nursing. * Wear a supportive bra. * If having problems with breasts or breast feeding, call a legal nurse consultant or your health care provider. EPISIOTOMY CARE: After delivery, if you have an episiotomy (stitches), the following steps will ease discomfort and aid healing. * For the first 24 hours after delivery, place ice packs next to your episiotomy to help reduce swelling. * After the first 24 hour-period, sitz baths, either portable or in the tub, are suggested. A shower with a shower arm sprayed over the episiotomy may be comforting. * Edel care should be done after each voiding and bowel movement. Squirt warm water from a plastic bottle over the perineum (region of the body between the anus and urinary opening) and pat dry. * Use Dermoplast to ease discomfort. Shake container. [place] directly over the episiotomy. Place a Tucks on a clean sanitary pad next to your episiotomy. SPECIAL CARE INSTRUCTIONS: When you are discharged from the hospital, it is important for you to follow the instructions listed below: * During the first week at home, you should be able to care for yourself and your baby. In addition, the usual light household activities are encouraged. * Limit your activities to the way you feel. Do not try to clean the house or move furniture. Be sensible. * If you actively engage in sports and have done so up until the time of your delivery, you may resume these activities as soon as you feel able. This may take up to one month or even longer. Use good judgment. * Continue to take your vitamins for at least six weeks after the of your baby. * Your diet need not be limited unless you were on a special diet before your delivery. Breast-feeding mothers need around 2500 calories per day and at least 64-80 ounces of fluid per day (8 to 10 glasses). * You should eat foods from the four major food groups. Crash diets or fad diets are to be avoided. Eating lean meats, fresh fruits and vegetables, low-fat dairy products, high fiber foods and a regular exercise program, will help you get back to your pre- weight without putting your health at risk. * Constipation is sometimes a problem after delivery. Take a mild laxative as needed. If breast feeding, Milk of Magnesia is acceptable to use. You may use a suppository or Fleets enema if no episiotomy. * A daily shower or tub bath is suggested. Be sure to thoroughly and gently dry the perineum. * A bloody vaginal discharge will usually continue until around four weeks post . A small amount of bleeding may continue for as long as six weeks. Vaginal discharge changes from the bright red bleeding after delivery to pink then brownish and finally yellowish-pink before becoming white and disappearing. * Bleeding may increase with activity. Your first period may come in 4-8 weeks. If you are breast feeding, your period may be delayed even longer. * [place] (sex) can begin whenever both you and your partner feel comfortable and do not have any form of genital infection. It is recommended that you wait at least six weeks for internal and external healing to occur. If you have questions, please talk to your health care practitioner. A condom should be used to prevent infection and . * Foreplay, gentle intercourse and lubrication is very important the first several times to prevent pain. A water-based lubricant such as K-Y jelly or Astroglide may be used. * If you have RH negative blood and your baby is RH positive, you will receive RHOGAM by injection prior to discharge. The nurse will give you a card to keep with you that has the date and place that you received RHOGAM after delivery. * During your care, you had a Rubella screen done to check for the presence of rubella antibodies in your blood. If your test was negative, you will receive a Rubella vaccine prior to discharge. This vaccine may cause a fever, soreness at the injection site and flu-like symptoms. If these symptoms persist, notify your health care practitioner. is not advised for one month after a Rubella vaccine. * Verbalizes understanding of car seat law as reviewed with patient nursing. * Car Seat hand-out given and reviewed with patient by nursing. * Shaken baby information reviewed with patient by nursing. Call you doctor if: * Heavy bleeding (saturating several pads an hour) or passing clots the size of your fist. * A fever >101 degrees F (38.3 degrees C) on two occasions four hours apart and /or chills. * Unusual pain in the pelvic or vaginal areas. * "Baby Blues" lasting longer than two weeks. If you have any questions or concerns, call your health care practitioner at . FOLLOW UP VISIT: * Please call the office at to schedule a 6 week examination. It is important you keep this appointment. It is important for you to make arrangements for either yearly or twice yearly check-ups thereafter. Current Hospital Diet Patient's current hospital diet: Regular OB Diet Discharge Diet Recommended Diet: Regular OB Diet Pending Studies Studies pending at discharge: no Medical Emergencies . Who to Call and When: Medical Emergencies: If at any time you feel your situation is an emergency, please call 911 immediately. . Non-Emergent Contact Non-Emergency issues call your: Phone Triage Specialist . . "Provider Documentation" section prepared by Gume De La Paz. . VTE Core Measure Inpt VTE Proph given/why not?: Treatment not indicated
[2017-01-22] MEDS: FLINTSTONES COMPLETE CHEWABLE TAB PO SCH (08:57)
[2017-01-22] MEDS: DOCUSATE SODIUM 100 MG CAP PO SCH (08:57)
[2017-01-22 12:30] VITALS: BP 151/81; PULSE 93; TEMP 36.7; O2SAT 97
[2017-01-22 13:15] VITALS: BP_DIAS 81; PULSE 93; TEMP 36.7
== END 2017-01-22 13:15 | disposition home or self-care (01) | DRG 775 ==
LOC: C.LD 22:01 → C.OPB 22:01 → C.LD 22:32 → C.OBG 01-20 17:40
PROVIDERS: ADMIT Obstetrics & Gynecology; ATTEND Obstetrics & Gynecology
PROC: 10E0XZZ Delivery of Products of Conception, External Approach (ICD-10-PCS; principal; 2017-01-19)
PROC: 0HQ9XZZ Repair Perineum Skin, External Approach (ICD-10-PCS; principal; 2017-01-19)
DX: O42.013 Preterm premature rupture of membranes, onset of labor within 24 hours of rupture, third trimester (principal); O60.14X0 Preterm labor third trimester with preterm delivery third trimester, not applicable or unspecified; O13.4 Gestational [pregnancy-induced] hypertension without significant proteinuria, complicating childbirth; O99.824 Streptococcus B carrier state complicating childbirth; O70.0 First degree perineal laceration during delivery; O99.214 Obesity complicating childbirth; E66.01 Morbid (severe) obesity due to excess calories; Z3A.36 36 weeks gestation of pregnancy; Z37.0 Single live birth

== ENCOUNTER → 2017-03-12 | Outpatient (CLI) | payer BC, OTHER ==
[~2017-03-12] MED LIST changes: +FLVHFA110 INH; +PANT40TA PO; +ZNTT/150 PO
== END | disposition home or self-care (01) ==
LOC: C.PAPS 14:16
PROVIDERS: ATTEND Obstetrics & Gynecology
DX: Z12.4 Encounter for screening for malignant neoplasm of cervix (principal)

== ENCOUNTER → 2017-03-19 | Day surgery (SDC) | payer BC, OTHER ==
[~2017-03-19] VITALS: Ht 165.1 cm; Wt 114.0 kg
[~2017-03-19] MED LIST changes: +LIDOCAINE HCL 2% 2 ML VIAL (20MG/ML) ONE; +ONDANSETRON INJ 2 MG/ML 2 ML VIAL ONE; +PROPOFOL IV EMULSION 10 MG/ML 20 ML VIAL IV ONE; +SODIUM CHLORIDE 0.9% 500ML 500 ML IV ONE
[2017-03-19 12:27] VITALS: Ht 165.1 cm; Wt 114.0 kg
--- NOTE | 2017-03-19 12:47 | Endo History and Physical ---
History & Physical Date of Service: Mar 19, 2017. Chief Complaint: eosinophilic esophagitis with dilation Referring Physician: Dr. Jon Holden History of Present Illness 37 yo CF who presents for EGD secondary to dysphagia and eosinophilic esophagitis. Past Medical History Gastrointestinal Disorder, Reflux Past Surgical History Hx Cardiac Surgery: No Hx Internal Defibrillator: No Hx Pacemaker: No Hx Abdominal Surgery: Yes (gallbladder removed 2009) Hx of Implantable Prosthesis: No Hx Post-Op Nausea and Vomiting: No Hx Cancer Surgery: No Hx Thoracic Surgery: No Hx Orthopedic: Yes (left knee arthroscopy 2009 ) Hx Urinary Tract Surgery: No Family History Colon CA Social History Smoking Status: Never Smoker Hx Substance Use: No Hx Alcohol Use: No Allergies Coded Allergies: Adhesives (Verified Allergy, Intermediate, REDNESS, IRRITATION, 01/20/17) oNLY WITH CLEAR TAPE. PAPER TAPE AND BANDAIDS FINE Current Medications Reported Home Medications Medications Dose Route/Sig Max Daily Dose Days Date Category Zantac (Ranitidine HCl) 150 Mg Tab 150 Mg PO DAILY 03/19/17 Reported Flovent Hfa (Fluticasone Propionate) 120 Puffs/93201 Mcg Aero 2 Puffs INH BID 30 03/04/17 Reported Protonix (Pantoprazole Sodium) 40 Mg Tab 40 Mg PO BID 03/04/17 Reported Flintstones Chewable (Pediatric Multiple Vitamin W/) 1 Chw Chw 1 Tab PO QAM 10/05/16 Reported Vital Signs Weight (Kilograms): 114 Height (Feet): 5 Height (Inches): 5 Date Time Temp Pulse Resp B/P (MAP) Pulse Ox O2 Delivery O2 Flow Rate FiO2 03/19/17 12:43 36.5 86 20 150/72 (98) 97 Room Air Physical Exam General Appearance: WD/WN, no apparent distress Respiratory/Chest: Auscultation: breath sounds normal Cardiovascular: Heart Auscultation: RRR Abdomen: Bowel Sounds: normal Inspection & Palpation: soft, non-distended, no tenderness, guarding & rebound Assessment and Plan Assessment: 37 yo CF who presents for EGD secondary to dysphagia and eosinophilic esophagitis. Plan: Proceed with EGD.
--- NOTE | 2017-03-19 13:26 | Discharge Instructions ---
Endoscopy Patient Instructions Date / Procedure(s) Performed Mar 19, 2017. EGD Allergy Information Coded Allergies: Adhesives (Verified Allergy, Intermediate, REDNESS, IRRITATION, 01/20/17) oNLY WITH CLEAR TAPE. PAPER TAPE AND BANDAIDS FINE Discharge Date / Findings Mar 19, 2017. Eosinophilic esophagitis with Midesophageal biopsies and esophageal dilation to 60f (20mm) Medication Instructions OK to resume all medications today as prescribed Reported Home Medications Medications Dose Route/Sig Max Daily Dose Days Date Category Zantac (Ranitidine HCl) 150 Mg Tab 150 Mg PO DAILY 03/19/17 Reported Flovent Hfa (Fluticasone Propionate) 120 Puffs/62241 Mcg Aero 2 Puffs INH BID 30 03/04/17 Reported Protonix (Pantoprazole Sodium) 40 Mg Tab 40 Mg PO BID 03/04/17 Reported Flintstones Chewable (Pediatric Multiple Vitamin W/) 1 Chw Chw 1 Tab PO QAM 10/05/16 Reported Provider Instructions Activity Restrictions - No exercising or heavy lifting for 24 hours. - Do not drink alcohol the day of the procedure. - Do not drive a car or operate machinery until the day after the procedure. - Do not make any important decisions or sign important papers in 24 hours after the procedure. Following Day: - Return to full activity which may include returning to work/school. Diet Start your diet with liquids and light foods (jello, soup, juice, toast). Then eat your usual diet if not nauseated. Treatment For Common After Affects For mild abdominal pain, bloating, or excessive gas: - Rest - Eat lightly - Lie on right side Follow-Up Information Follow-up with Dr. Jon Holden as scheduled Anesthesia Information What You Should Know You have had a procedure that required some medicine to reduce anxiety and discomfort. This treatment is called moderate sedation. After receiving the treatment, you may be sleepy, but you will be able to breathe on your own. The effects of the treatment may last for several hours. Follow these instructions along with Activity/Diet recommendations noted above: * Do NOT do anything where dizziness or clumsiness would be dangerous. * Rest quietly at home today, then you can be up and about tomorrow. * Have a responsible person stay with you the rest of today. * You may have had an I.V. today. If so, you may take the dressing off later today. Recommendations Call your doctor if: * Trouble breathing * Continuous vomiting for more than 24 hours * Temperature above 101 degrees * Severe abdominal pain or bloating * Pain not relieved by pain medicine ordered * There is increased drainage or redness from any incision * A large amount of rectal bleeding greater than 2-3 tablespoons. (If you had a polyp/s removed or have hemorrhoids, a small amount of blood - from the rectum is to be expected.) * You have any unanswered questions or concerns. IN THE EVENT OF A SERIOUS EMERGENCY, GO TO THE NEAREST EMERGENCY ROOM Your discharge instructions were prepared by provider Donny Sanz. Patient Instructions Signature Page Adelaida Lieberman Patient (or Guardian) Signature/Date: I have read and understand the instructions given to me by my caregivers. Caregiver/RN/Doctor Signature/Date: The above-named patient and/or guardian has received patient instructions on this date. + Original Patient Signature Page (only) stays with chart. Please make copy for patient.
--- NOTE | 2017-03-19 13:43 | Anesthesiology Progress Note ---
Anesthesia Post Op Note Date & Time Mar 19, 2017 at 13:43 Vital Signs Pain Intensity: 0 Vital Signs Past 12 Hours Date Time Temp Pulse Resp B/P (MAP) Pulse Ox O2 Delivery O2 Flow Rate FiO2 03/19/17 13:40 78 20 153/65 (94) 97 Room Air 03/19/17 13:25 83 20 133/40 (71) 97 Room Air 03/19/17 12:43 36.5 86 20 150/72 (98) 97 Room Air Notes Mental Status: alert / awake / arousable, participated in evaluation Pt Amnestic to Procedure: Yes Nausea / Vomiting: adequately controlled Pain: adequately controlled Airway Patency, RR, SpO2: stable & adequate BP & HR: stable & adequate Hydration State: stable & adequate Anesthetic Complications: no major complications apparent
--- NOTE | 2017-03-19 13:48 | GI REPORT ---
Procedure Date: 03/19/2017 12:24 PM Procedure: Upper GI endoscopy Indications: Dysphagia Medicines: Monitored Anesthesia Care Complications: No immediate complications. Estimated Blood Loss: Estimated blood loss: none. Procedure: Pre-Anesthesia Assessment: - Prior to the procedure, a History and Physical was performed, and patient medications and allergies were reviewed. The patient's tolerance of previous anesthesia was also reviewed. The risks and benefits of the procedure and the sedation options and risks were discussed with the patient. All questions were answered, and informed consent was obtained. Prior Anticoagulants: The patient has taken no previous anticoagulant or antiplatelet agents. ASA Grade Assessment: II - A patient with mild systemic disease. After reviewing the risks and benefits, the patient was deemed in satisfactory condition to undergo the procedure. After obtaining informed consent, the endoscope was passed under direct vision. Throughout the procedure, the patient's blood pressure, pulse, and oxygen saturations were monitored continuously. The On-site loaner was introduced through the mouth, and advanced to the second part of duodenum. The upper GI endoscopy was accomplished without difficulty. The patient tolerated the procedure well. Findings: Mucosal changes including ringed esophagus, longitudinal furrows and white plaques were found in the entire esophagus. A guidewire was placed and the scope was withdrawn. Dilation was performed with a Savary dilator with mild resistance at 60 Fr. Biopsies were taken with a cold forceps for histology. The stomach was normal. The examined duodenum was normal. Impression: - Esophageal mucosal changes consistent with eosinophilic esophagitis. Dilated. Biopsied. - Normal stomach. - Normal examined duodenum. Recommendation: - Resume previous diet. - Continue present medications. - Await pathology results. - Return to GI office as previously scheduled. Donny Sanz, 03/19/2017 1:47:36 PM This report has been signed electronically. Note Initiated On: 03/19/2017 12:24 PM I attest to the content of the Intraoperative Record and orders documented therein, exceptions below
[2017-03-19 13:55] VITALS: BP 109/90; PULSE 77; O2SAT 100
== END | disposition home or self-care (01) ==
LOC: C.GI 12:15
PROVIDERS: ATTEND Internal Medicine
DX: K20.0 Eosinophilic esophagitis (principal); R13.10 Dysphagia, unspecified; Z80.0 Family history of malignant neoplasm of digestive organs

== ENCOUNTER → 2017-04-22 | Outpatient (CLI) | payer BC, OTHER ==
[~2017-04-22] MED LIST changes: -LIDOCAINE HCL 2% 2 ML VIAL (20MG/ML) ONE; -ONDANSETRON INJ 2 MG/ML 2 ML VIAL ONE; -PROPOFOL IV EMULSION 10 MG/ML 20 ML VIAL IV ONE; -SODIUM CHLORIDE 0.9% 500ML 500 ML IV ONE
[2017-04-25 06:02] LABS: CHLAMYDIA TRACH RNA*** NOT DETECTED (NOT DETECTED); GC (NEIS GONORRHOEAE)RNA** NOT DETECTED (NOT DETECTED)
== END | disposition home or self-care (01) ==
LOC: C.LABSPEC 14:58
PROVIDERS: ATTEND Physician Assistant
DX: Z30.430 Encounter for insertion of intrauterine contraceptive device (principal)

== ENCOUNTER → 2017-04-22 | Outpatient (CLI) | payer BC, OTHER ==
[2017-04-22 12:51] LABS: PREG INTERNAL NEGATIVE QC NEG CLEAR BACKGROUND; PREG INTERNAL POSITIVE QC POS CONTROL LINE
== END | disposition home or self-care (01) ==
LOC: C.LAB 12:04
PROVIDERS: ATTEND Physician Assistant
DX: Z30.9 Encounter for contraceptive management, unspecified (principal)

== ENCOUNTER 2019-11-03 07:54 | Inpatient (IN) ==
[2019-11-03] MEDS ORDERED: OXYTOCIN 30 UNITS/500 ML BAG IV PRN ×3 (09:52→17:44)
[2019-11-03] MEDS ORDERED: PENICILLIN G POTASSIUM 3 MU in DEXTROSE 5% 100 ML IV PRN (09:52)
--- NOTE | 2019-11-03 09:56 | Labor Progress Brief Note ---
Date of Service November 03, 2019 Subjective Review of Systems All systems reviewed & are unremarkable except as noted in HPI & below Assessment & Plan (1) Encounter for induction of labor: IOL to begin with pitocin. PCN for GBS status. AROM after adequate Abx if not already SROM. Epidural on request. Large known ovarian cyst likely contributing to patient discomfort and is reason for inducing at term. To be addressed surgical post- if needed. (2) Pelvic pain affecting in third trimester, antepartum: (3) Right ovarian cyst: (4) Supervision of elderly multigravida: (5) GBS carrier: Admission and Anticipated Discharge Date Admission Date: November 03, 2019 Physical Exam Constitutional: WD/WN, vitals as above Eyes: PERRL, conjunctivae normal, anicteric sclerae ENMT: external ear and nose normal, oropharynx normal Neck: supple Respiratory: normal respiratory effort and able to speak in complete sentences; no respiratory distress Cardiovascular: Rate/Rhythm: regular rate and regular rhythm Extremities: + pedal edema Gastrointestinal (Abdomen): Gravid / AGA, nontender Musculoskeletal: no cyanosis or clubbing, extremities motor strength 5/5 Skin: no rashes, warm and dry Neurologic: patellar DTR's 2+ bilat, sensation intact Psychiatric: A+Ox3, euthymic affect Genitourinary: Speculum/Bimanual Exam: no vaginal lesions, no vaginal bleeding and uterus nontender OB Exam Abdomen: + vertex and + estimated weight (7) Manual OB Exam: + cervical dilation 3 cm, + cervical effacement 50%, + station (soft, posterior) -2 and + amniotic fluid (No leaking evident) OB Exam Monitor Tracing: + external FHT monitor used, + external uterine monitor used and + category I Lymphatic: no cervical or axillary lymphadenopathy Results & Data ([facility]) Vital Signs (Past 12 Hours) Vital Signs Temp Pulse Resp BP 11/03/19 08:14 98.4 F 72 20 125/79 11/03/19 07:59 72 125/79 Coding Level of Care Code None Diagnoses Encounter for induction of labor Z34.90 Pelvic pain affecting in third trimester, antepartum O26.893; R10.2 Right ovarian cyst N83.201 Supervision of elderly multigravida O09.529 GBS carrier Z22.330
[2019-11-03] MEDS ORDERED: PENICILLIN G POTASSIUM 6 MU in DEXTROSE 5% 250 ML IV STA (10:00)
[2019-11-03] MEDS: LACTATED RINGER'S 1,000 ML IV PRN ×2 (10:01→14:30)
[2019-11-03 10:18] LABS: Hematocrit (blood only) 31.5 % (37-47); Hemoglobin 9.9 g/dL (12.0-16.0); Mean Corpuscular Hemoglobin 27.3 pg (25-34); Mean Corpuscular Hgb Conc 31.4 g/dL (32-36); Mean Platelet Volume 10.6 fL (7.4-10.4); Platelet Count 231 K/uL (130-400); RDW Coefficient of Variation 13.2 % (11.5-14.5); RDW Standard Deviation 42.3 fL (36.4-46.3); Red Blood Count 3.62 M/uL (4.2-5.4); White Blood Count 6.71 K/uL (4.8-10.8)
[2019-11-03] MEDS ORDERED: ePHEDrine sulfate 50 MG/ML AMP ONE (13:40)
[2019-11-03] MEDS ORDERED: BUPIVACAINE 0.25% 30 ML VIAL ONE (13:40)
[2019-11-03] MEDS ORDERED: fentaNYL 2MCG/ML ROPIV 1.25MG/ML 100 ML BAG EPI ONE (13:41)
[2019-11-03] MEDS ORDERED: fentaNYL citrate 100 MCG/2 ML VIAL ONE (13:41)
--- NOTE | 2019-11-03 14:36 | Anesthesiology Consultation ---
Date of Service November 03, 2019 Assessment & Plan (1) Encounter for pre-operative examination: Chart Review Chart Review: Patient NOT seen in Pre Admission Testing and Acceptable Risk for Labor Epidural Consults Requested none ASA ASA2 Proposed Anesthesia Anesthesia Type: Labor Epidural Risk / Benefits Reviewed With: PT / POA / Parent / Guardian, Accepts Plan and Informed Consent Obtained History Height/Weight Height: 5 ft 6 in Weight: 100.783 kg Allergies Allergy/AdvReac Type Severity Reaction Status Date / Time adhesive Allergy Mild REDNESS, Verified 10/28/19 09:42 IRRITATION Medications Home Medications Medication Instructions Recorded Confirmed Last Taken Flintstones Complete (iron) 1 tab PO BID 12/22/18 11/03/19 11/02/19 08:00 pantoprazole 40 mg PO DAILY #30 tab 12/31/18 11/03/19 11/02/19 08:00 Active Medications Generic Name Dose Route Start Last Admin Trade Name Freq PRN Reason Stop Dose Admin Lactated Ringer's 1,000 mls @ 125 mls/hr 11/03/19 09:52 11/03/19 14:30 Lr IV 11/05/19 09:51 125 mls/hr .Q8H PRN Administration L&D Protocol Protocol Penicillin G Potassium 3 mu/ 106 mls @ 100 mls/hr 11/03/19 09:52 11/03/19 14:03 Dextrose IV 11/13/19 09:51 100 mls/hr Q4H PRN Administration Give until delivery Oxytocin 30 units in 500 mls @ 15 mls/hr 11/03/19 09:52 11/03/19 14:00 Pitocin IV 11/05/19 09:51 0.9 units/hr .Q24H PRN 15 mls/hr Labor Induction/Augmentation Titration Protocol 0.9 UNITS/HR NPO Date Last Intake of Fluids: 11/03/19 Time Last Intake of Fluids: 05:30 Date Last Intake of Solids: 11/02/19 Time Last Intake of Solids: 22:30 Past Medical History Medical History 32 weeks gestation of 35 weeks gestation of Abdominal cramping affecting Chest pain (Resolved) Encounter for anatomic survey Enlarged RV (right ventricle) Eosinophilic esophagitis Gestational [-induced] hypertension without significant proteinuria, third trimester History of gestational hypertension History of hematemesis Hx of abnormal cervical Pap smear Irregular contractions Nausea and vomiting during with 36 completed weeks gestation Severe hypertension affecting in third trimester Shortness of breath (Resolved) Exercise / Class Metabolic Activity II 4-5 Yardwork/Stairs/Walk up hill Past Family History Family History Grandfather (Paternal) Family history of diabetes mellitus Prostate cancer Aunt Hodgkin lymphoma Breast cancer Other No family history of adverse response to anesthesia Past Surgical History Surgical History History of arthroscopy of left knee History of cholecystectomy History of esophagogastroduodenoscopy (EGD) 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 History of tonsillectomy and adenoidectomy History of wisdom tooth extraction Hx of partial thyroidectomy right side removed--2 benign lumps Status post biopsy of thyroid gland x3 Status post LASIK surgery of both eyes Past Anesthesia History No Hx of Anesthesia Complications and No Family Hx of Anesthesia Complications History of PONV No Hx of PONV and No Hx of Motion Sickness Social History Smoking Status: Never smoker Hx Alcohol Use: No Hx Substance Use: No substance use type: does not use Physical Exam Vital Signs Last Vital Signs Temp 36.9 C 11/03/19 12:20 Pulse 85 11/03/19 14:32 Resp 20 11/03/19 12:20 BP 122/60 11/03/19 14:32 Pulse Ox 99 11/03/19 14:30 ENMT Mouth: no dentition abnormality Thyromental Distance: > or= 3.5 Finger Breadths Mallampati Class: II Neck normal visual inspection Respiratory normal respiratory effort Auscultation: lungs clear to auscultation bilaterally Cardiovascular Rate/Rhythm: regular rate and regular rhythm Psychiatric Orientation: alert Testing Laboratory Results 11/03/19 09:58
[2019-11-03] MEDS ORDERED: fentaNYL 2MCG/ML ROPIV 1.25MG/ML 100 ML BAG EPI PRN (14:37)
[2019-11-03] MEDS ORDERED: ONDANSETRON INJ 2 MG/ML 2 ML VIAL IV PRN (14:37)
[2019-11-03] MEDS ORDERED: DiphenhydrAMINE HCL 50 MG/ML VIAL IV PRN (14:37)
[2019-11-03] MEDS ORDERED: NALOXONE HCL 1 MG in SODIUM CHLORIDE 0.9% 1000ML 1,000 ML IV PRN (14:37)
[2019-11-03] MEDS ORDERED: NALOXONE HCL 0.4 MG/1 ML VIAL/CARP IV PRN (14:37)
[2019-11-03] MEDS ORDERED: ePHEDrine sulfate 50 MG/ML AMP IV PRN (14:37)
[2019-11-03] MEDS ORDERED: PROMETHAZINE HCL 6.25 MG in SODIUM CHLORIDE 0.9% 50 ML IV PRN (14:37)
--- NOTE | 2019-11-03 17:14 | Delivery Summary ---
Vaginal Delivery Summary Date of Service November 03, 2019 Vaginal Delivery Summary DIAGNOSES: 1. Andrade intrauterine at 39wk gestation. 2. Induction of Labor, elective / due to large ovarian cyst causing discomfort 3. Group B Streptococcus Pos. PROCEDURE: Spontaneous vaginal delivery and repair of first degree laceration. SURGEON: Josefina Maldonado MD. PATROL OFFICER: None. ESTIMATED BLOOD LOSS: 300 mL. COMPLICATIONS: None. PLACENTA: Spontaneous and intact with a 3-vessel cord. DISPOSITION: Stable to labor and delivery. DESCRIPTION: The patient pushed well and brought the head to in OA position. The infant's head was allowed to deliver with contraction force and no further active pushing, with the perineum protected during this time. The shoulders delivered easily with a maternal pushing effort. There was a loose nuchal cord. The left shoulder was anterior. The shoulders and body delivered without any difficulty, and the was placed on the maternal abdomen. It was vigorous and moving all extremities, and making respiratory efforts. The cord was doubly clamped by the MD and then cut by the FOB. The placenta delivered spontaneously and was noted to be intact and with a 3VC. The cervix, vagina and perineum were examined and were found to have a first degree laceration repaired with 3-0 vicryl in running locked manner. The fundus was firm and lochia minimal immediately after delivery.
[2019-11-03] MEDS ORDERED: ACETAMINOPHEN 325 MG TAB PO PRN (17:44)
[2019-11-03] MEDS ORDERED: BENZOCAINE 20% AER SPR 82.5 GM CAN EXT PRN (17:44)
[2019-11-03] MEDS ORDERED: SUPERCREAM 0.870% 15 GM JAR EXT PRN (17:44)
[2019-11-03] MEDS ORDERED: OXYCODONE/ACETAMINOPHEN 5mg/325mg TAB PO PRN (17:44)
[2019-11-03] MEDS ORDERED: DIPHTHERIA/TETANUS/PERTUSSIS 0.5 ML SYR/VIAL IM ONE (17:44)
[2019-11-03] MEDS ORDERED: HYDROCORTISONE ACETATE 25 MG SUPP PR PRN (17:44)
[2019-11-03] MEDS: DOCUSATE SODIUM 100 MG CAP PO SCH ×2 (21:00→21:30)
--- NOTE | 2019-11-03 21:39 | Anesthesia Procedure Note ---
Date of Service November 03, 2019 Anesthesia Post Epidural Note Vital Signs Vital Signs: Temp Pulse Resp BP Pulse Ox 36.7 C 81 19 132/81 100 11/03/19 20:30 11/03/19 20:30 11/03/19 20:30 11/03/19 20:30 11/03/19 17:10 Pain Intensity Abdomen: Pain Intensity: 0 Notes Mental Status: alert / awake / arousable Nausea / Vomiting: adequately controlled Pain: adequately controlled Airway Patency, RR, SpO2: stable & adequate BP & HR: stable & adequate Hydration State: stable & adequate Neuraxial Anesthesia: was administered and sensory block is resolving Anesthetic Complications: no major complications apparent and Pt Satisfied with anesthetic care Epidural: Removed without complications and With tip intact
[2019-11-03] MEDS: IBUPROFEN 600 MG TAB PO PRN (23:41)
[2019-11-04] MEDS: IBUPROFEN 600 MG TAB PO PRN ×2 (03:40→20:07)
[2019-11-04 06:00] LABS: Hematocrit (blood only) 28.8 % (37-47); Hemoglobin 9.1 g/dL (12.0-16.0); Mean Corpuscular Hemoglobin 27.7 pg (25-34); Mean Corpuscular Hgb Conc 31.6 g/dL (32-36); Mean Corpuscular Volume 87.5 fL (80-100); Mean Platelet Volume 10.9 fL (7.4-10.4); Platelet Count 204 K/uL (130-400); RDW Coefficient of Variation 13.2 % (11.5-14.5); RDW Standard Deviation 42.7 fL (36.4-46.3); Red Blood Count 3.29 M/uL (4.2-5.4); White Blood Count 8.82 K/uL (4.8-10.8)
--- NOTE | 2019-11-04 08:36 | Obstetrical Progress Note ---
Date of Service November 04, 2019 Assessment & Plan (1) Vaginal delivery: Subjective Ambulation: ambulating normally Voiding: no voiding problems Passing Gas:: Yes Diet Tolerance:: regular diet Lochia:: Small Feeding Type:: breast feeding Physical Exam Constitutional WD/WN, vitals as above Eyes PERRL, conjunctivae normal, anicteric sclerae Neck normal visual inspection Respiratory normal respiratory effort and able to speak in complete sentences; no respiratory distress and no labored breathing Cardiovascular Rate/Rhythm: regular rate and regular rhythm Extremities: no edema Chest (Breasts) Chest: normal inspection of chest Gastrointestinal (Abdomen) Inspection/Auscultation: abdomen normal to inspection Soft, postgravid Psychiatric A+Ox3, euthymic affect Genitourinary OB Exam Abdomen: + fundal height Fundus: + firm and + relation to umbilicus (fundus just below umbilicus); not tender Results & Data ([facility]) Vital Signs (Past 12 Hours) Vital Signs Temp Pulse Resp BP 11/04/19 03:40 97.7 F 67 18 137/80 11/03/19 23:35 98.2 F 67 18 132/84
[2019-11-04] MEDS ORDERED: PANTOprazole 40 MG TAB PO SCH (09:00)
[2019-11-04] MEDS: PRENATAL VITAMIN 1 TAB PO SCH (09:10)
[2019-11-04] MEDS: DOCUSATE SODIUM 100 MG CAP PO SCH ×2 (09:11→20:06)
[2019-11-05 06:14] LABS: Hematocrit (blood only) 29.5 % (37-47); Hemoglobin 9.2 g/dL (12.0-16.0)
--- NOTE | 2019-11-05 07:04 | Obstetrical Progress Note ---
Date of Service November 05, 2019 Assessment & Plan (1) Vaginal delivery: - patient desires d/c - instructions given - f/u in 6 weeks for pp check - evaluate cyst at pp check Subjective Ambulation: ambulating normally Voiding: no voiding problems Feeding Type:: breast feeding Physical Exam Constitutional WD/WN, vitals as above Gastrointestinal (Abdomen) Fundus firm below umbilicus Musculoskeletal No deep calf tenderness Results & Data ([facility]) Vital Signs (Past 12 Hours) Vital Signs Temp Pulse Resp BP Pulse Ox 11/05/19 00:50 97.5 F L 60 16 130/81 95
[2019-11-05] MEDS: DOCUSATE SODIUM 100 MG CAP PO SCH (07:39)
[2019-11-05] MEDS: PRENATAL VITAMIN 1 TAB PO SCH (07:39)
== END 2019-11-05 13:20 | disposition home or self-care (01) | DRG 807 ==
LOC: 4S1 07:54 → 4S2 20:23